=== PATIENT | male | born 1950 | race Caucasian/White ===

== ENCOUNTER 2024-12-15 17:11 | Inpatient (IN) | payer MEDICARE, BC, SELFPAY ==
[2024-12-15] VITALS (10 sets, daily range): BP systolic 178–239; BP diastolic 106–167; PULSE 81–97; RESP 19–30; TEMP 36.3; O2SAT 88–97; BMI 39.6
--- NOTE | 2024-12-15 17:25 | ECG_ITS ---
[employer] Test Date: 2024-12-15 Pat Name: Rupert Poe Department: Room: Gender: Male Skill Training Program Coordinator: : 1950 Requested By: Jerome Allred Order Number: [id number] Reading MD: MCKENZIE REYNOSO Measurements Intervals [place] Rate: 93 P: 29 AR: 242 QRS: 114 QRSD: 158 T: 2 QT: 443 QTc: 552 Interpretive Statements SINUS RHYTHM WITH FIRST DEGREE AV BLOCK WITH OCCASIONAL VENTRICULAR PREMATURE COMPLEXES POSSIBLE LEFT ATRIAL ENLARGEMENT [-0.1mV P-WAVE IN V1/V2] INTRAVENTRICULAR CONDUCTION DELAY [130+ ms QRS DURATION] POSSIBLE RIGHT VENTRICULAR HYPERTROPHY [SOME/ALL OF: PROMINENT R IN V1, LATE TRANSITION, RAD, TRENA, SSS] SEPTAL MYOCARDIAL INFARCTION , OF INDETERMINATE AGE [40+ ms Q WAVE IN V1/V2] INTERPRETATION BASED ON A DEFAULT AGE OF 40 YEARS No previous ECG available for comparison Electronically Signed On 12-17-2024 23:36:59 PLANT MECHANIC by MCKENZIE REYNOSO [id number]
--- NOTE | 2024-12-15 17:42 | XRR_ITS ---
PROCEDURE INFORMATION: Exam: XR Chest Exam date and time: 12/15/2024 5:47 PM Age: 74 years old Clinical indication: Shortness of breath; Additional info: SOB TECHNIQUE: Imaging protocol: Radiologic exam of the chest. Views: 1 view. COMPARISON: No relevant prior studies available. FINDINGS: Lungs: Bibasilar compressive atelectasis. Diffuse reticular opacities likely representing fibrotic change. Pleural spaces: Eqzx-pgxobre-juvt-right layering bilateral pleural effusions. Heart/Mediastinum: Cardiomegaly. Bones/joints: Moderate degenerative change of the thoracic spine, bilateral shoulders. Other findings: Decreased mineralization. XR/XR chest 1V portable [id number] IMPRESSION: 1. Trcm-lqajrbe-ocen-right layering bilateral pleural effusions with associated compressive atelectasis. 2. Query pulmonary fibrotic change.
[2024-12-15 18:01] LABS: Basophils # 0.1 10^3/uL (0.0-0.1); Basophils % 0.6 %; Eosinophils # 0.2 10^3/uL (0.0-0.8); Eosinophils % 1.9 %; Hematocrit 51.4 % (37-53); Lymphocytes # 1.7 10^3/uL (0.8-4.8); Lymphocytes % 21.5 %; Mean Corpuscular HGB Conc 32.1 g/dL (30-55); Mean Corpuscular Hemoglobin 30.2 pg (27-33); Mean Platelet Volume 11.1 fL (7.4-10.4); Monocytes # 0.8 10^3/uL (0.2-0.9); Monocytes % 10.1 %; Neutrophils # 5.08 10^3/uL (1.8-7.7); Neutrophils % 65.8 %; Nucleated Red Blood Cells % 0 %; Platelet Count 162 10^3/cmm (157-399); Red Blood Count 5.47 10^6/uL (3.85-5.65); Red Cell Distribution Width 15.9 % (12.1-15.1); White Blood Count 7.73 10^3/uL (3.29-11.43)
[2024-12-15 18:05] LABS: ABG PCO2 43.1 mmHg (35-45); ABG PH Result 7.35 (7.35-7.45); Arterial Blood Gas Hematocrit 51.2 % (42-52); Base Excess ABG -1.8 mmol/L (-2.0-2.0); Blood Gas Allen Test Pos; Blood Gas Operator Identificat MONRO; Blood Gas Sample Site Radial, left; Blood Gas Sample Type Arterial; Carboxyhemoglobin 0.8 %THgb (0.4-20.1); HCO3 ABG 23.9 mmol/L (22-26); HGB O2 Sat 94.9 % (95-100); Oxygen Device NC; PO2 FiO2 Ratio Arterial Blood 284; Total Hemoglobin 16.7 g/dL (14-18)
[2024-12-15 18:11] LABS: Troponin(5th) Baseline 53 ng/L (0-15)
[2024-12-15 18:26] LABS: Alanine Aminotransferase 19 U/L (0-41); Albumin Level 4.3 g/dL (3.5-5.2); Alkaline Phosphatase 58 U/L (40-130); Blood Urea Nitrogen 20 mg/dL (8-23); Carbon Dioxide 20 mmol/L (22-29); Chloride 104 mmol/L (98-107); Globulin 2.2 g/dL (1.3-4.6); Glucose 115 mg/dL (65-115); NT Pro B Type Natriuretic Pept 7666 pg/mL (0-450); Osmolality Calculated 292 mOsm/kg (285-295); Sodium 139 mmol/L (136-145); Total Bilirubin 0.9 mg/dL (0.15-1.2); Total Protein 6.5 g/dL (6.6-8.7)
[2024-12-15 18:37] LABS: Anion Gap 19.7 (5-19); Aspartate Amino Transferase 27 U/L (0-40); Potassium 4.7 mmol/L (3.5-5.1)
--- NOTE | 2024-12-15 18:51 | ECG_ITS ---
[employer] Test Date: 2024-12-15 Pat Name: Rupert Poe Department: Room: Gender: Male Genetic Physician: : 1950 Requested By: Jerome Allred Order Number: [id number] Reading MD: MCKENZIE REYNOSO Measurements Intervals [place] Rate: 88 P: 140 VA: 152 QRS: 126 QRSD: 151 T: -21 QT: 439 QTc: 534 Interpretive Statements ATRIAL FIBRILLATION RIGHT AXIS DEVIATION [QRS AXIS > 100] RIGHT BUNDLE BRANCH BLOCK [120+ ms QRS DURATION, UPRIGHT V1, 40+ ms S IN I/aVL/V4/V5/V6] MODERATE T-WAVE ABNORMALITY, CONSIDER LATERAL ISCHEMIA [-0.1+ mV T-WAVE IN I/aVL/V5/V6] MODERATE T-WAVE ABNORMALITY, CONSIDER INFERIOR ISCHEMIA [-0.1+ mV T-WAVE IN II/aVF] Compared to ECG 12/15/2024 17:25:29 there is no change Electronically Signed On 12-17-2024 23:50:18 APPLICATIONS SALES CONSULTANT by MCKENZIE REYNOSO [id number] [id number]
[2024-12-15] MEDS: FUROsemide 10 mg/mL SDV 10mL 80 MG IVP (19:09)
[2024-12-15 19:21] LABS: Influenza A NEGATIVE (Negative); Influenza B NEGATIVE (Negative); Respiratory Syncytial Virus Ce NEGATIVE (Negative); SARS-CoV-2 PCR NEGATIVE (Negative)
--- NOTE | 2024-12-15 19:41 | ED_ITS ---
HPI - SOB/Dyspnea 2 General: Chief Complaint: Shortness of Breath/Dyspnea Stated Complaint: sob Time Seen by Provider: 12/15/24 17:29 History of Present Illness: HPI Narrative: This patient is a 74-year-old white male who presents to the emergency department with shortness of breath. Patient states this started 9 days ago. States he has been retaining water. He has developed severe edema of both lower legs to the point where he is leaking. He has not had any chest pain. No fever. Patient states he has no chronic medical problems. He takes no medications. States he has not seen a physician in about 30 years. Associated symptoms: Deny chest pain Related Data Allergies Allergy/AdvReac Type Severity Reaction Status Date / Time No Known Allergies Allergy Verified 12/15/24 17:21 Review of Systems 2 General: Reports: 10 or more systems reviewed and unremarkable except in HPI and below Card: Reports: edema; Denies: chest pain Resp: Reports: dyspnea Physical Exam 2 Const: COMMON NORMALS: no acute distress, patient oriented x3 and no limitations GENERAL APPEARANCE: cooperative and comfortable HENMT: COMMON NORMALS: normocephalic, atraumatic, Normal nasal mucous membranes and turbinates present, moist oral mucous membranes and oropharynx normal HEAD & SCALP: normal to inspection, normocephalic and atraumatic F PEGGY & SINUS: normal facial exam NOSE: Normal nasal mucous membranes and turbinates present Eye: COMMON NORMALS: Equal, round and reactive pupils present, EOMs intact bilaterally and conjunctivae normal GENERAL EYE: appearance normal, both eyes and all related structures CONJUNCTIVA: Yes conjunctivae normal PUPIL: Yes Equal, round and reactive pupils present Neck/C-Spine: COMMON NORMALS: supple and no JVD Chest: COMMONS NORMALS: normal inspection of the chest Resp: COMMON NORMALS: normal respiratory effort AUSCULTATION: crackles and rales Cardio: COMMON NORMALS: no JVD, regular rate, regular rhythm, No gallops present (Cardio), No murmurs present (Cardio) and No rub (Cardio) RATE: r egular rate RHYTHM: regular rhythm GI: COMMON NORMALS: Normal to inspection, nondistended, normoactive bowel sounds present, Soft to palpation and non-tender AUSCULTATION: Yes normoactive bowel sounds PALPATION: Yes Soft to palpation : COMMON NORMALS: Yes no CVA tenderness BLADDER/KIDNEY EXAM: Yes no CVA tenderness Back/Pelvis: COMMON NORMALS: no CVA tenderness and thoracic and lumbar spine normal to inspection Extremity: NARRATIVE EXTREMITY EXAM: 3+ pitting edema bilateral lower extremi ties. Left leg is weeping. Neuro: COMMON NORMALS: patient oriented x3 and CN's II-XII intact bilaterally Psych: COMMON NORMALS: mental status grossly normal, Normal thought process present and cooperative THOUGHT PROCESS: Normal thought process present Skin: COMMON NORMALS: no rashes or lesions noted, turgor normal and no jaundice GENERAL SKIN EXAM: no rashes or lesions noted and turgor normal Course 2 Vital Signs: Vital signs: Vital Signs Temperature 97.3 F L 12/15/24 17:14 Pulse Rate 89 12/15/24 19:18 Respiratory Rate 22 H 12/15/24 19:18 Blood Pressure 239/150 12/15/24 19:18 Pulse Oximetry 96 12/15/24 19:18 Oxygen Delivery Me thod Room Air 12/15/24 19:18 MDM - SOB/Dyspnea Medical Decision Making EKG reveals a right bundle branch block. Chest x-ray reveals cardiomegaly and bilateral pleural effusions. Arterial blood gases on 3 L revealed a pH of 7.35 with pCO2 of 43 and a pO2 of 91. CBC and CMP were normal. BNP was 7666. Baseline troponin 53. COVID, flu and RSV negative. Patient was given 80 mg of Lasix IV. He was also placed on a labetalol drip for his severe hypertension. Blood pressure has been 200s over 120s. Patient does have new onset congestive heart failure. He will need to be admitted. He is also requiring oxygen. I discussed the case with Dr. Warren, hospitalist. Patient will be admitted shortly. He is stable. Lab Data 12/15/24 17:48 12/15/24 17:48 Labs/Radiology: Radiology Impressions Chest X-Ray 12/15/24 17:42 IMPRESSION: 1. Sfls-kwngddc-itfq-right layering bilateral pleural effusions with associated compressive atelectasis. 2. Query pulmonary fibrotic change. Laboratory Results WBC 7.73 10^3/uL (3.29-11.43) 12/15/24 17:48 RBC 5.47 10^6/uL (3.85-5.65) 12/15/24 17:48 Hgb 16.50 g/dL (11.27-16.99) 12/15/24 17:48 Hct 51.4 % (37-53) 12/15/24 17:48 MCV 94.0 fl (82-101) 12/15/24 17:48 MCH 30.2 pg (27-33) 12/15/24 17:48 MCHC 32.1 g/dL (30-55) 12/15/24 17:48 RDW 15.9 % (12.1-15.1) H 12/15/24 17:48 Plt Count 162 10^3/cmm (157-399) 12/15/24 17:48 MPV 11.1 fL (7.4-10.4) H 12/15/24 17:48 Neut % (Auto) 65.8 % 12/15/24 17:48 Lymph % (Auto) 21.5 % 12/15/24 17:48 Mitchell % (Auto) 10.1 % 12/15/24 17:48 Eos % (Auto) 1.9 % 12/15/24 17:48 Baso % (Auto) 0.6 % 12/15/24 17:48 Neut # (Auto) 5.08 10^3/uL (1.8-7.7) 12/15/24 17:48 Lymph # (Auto) 1.7 10^3/uL (0.8-4.8) 12/15/24 17:48 Mitchell # (Auto) 0.8 10^3/uL (0.2-0.9) 12/15/24 17:48 Eos # (Auto) 0.2 10^3/uL (0.0-0.8) 12/15/24 17:48 Baso # (Auto) 0.1 10^3/uL (0.0-0.1) 12/15/24 17:48 Nucleated RBC % (auto) 0 % 12/15/24 17:48 Nucleated RBCs # 0.0 /100WBC 12/15/24 17:48 Specimen Type Arterial 12/15/24 17:52 Sample Site Radial, left 12/15/24 17:52 ABG pH 7.35 (7.35-7.45) 12/15/24 17:52 ABG pCO2 43.1 mmHg (35-45) 12/15/24 17:52 ABG pO2 91.0 mmHg (80.0-100.0) 12/15/24 17:52 ABG PO2/FiO2 Ratio 284 12/15/24 17:52 ABG HCO3 23.9 mmol/L (22-26) 12/15/24 17:52 ABG Base Excess -1.8 mmol/L (-2.0-2.0) 12/15/24 17:52 Paresh Test Pos 12/15/24 17:52 Hematocrit 51.2 % (42-52) 12/15/24 17:52 Hgb O2 Saturation 94.9 % (95-100) L 12/15/24 17:52 Carboxyhemoglobin 0.8 %THgb (0.4-20.1) 12/15/24 17:52 Methemoglobin 0.0 % (0.4-1.5) L 12/15/24 17:52 Total Hemoglobin 16.7 g/dL (14-18) 12/15/24 17:52 O2 Delivery Device Nc 12/15/24 17:52 O2 Liters/Min 3.0 % 12/15/24 17:52 FiO2 32.0 % 12/15/24 17:52 Delivery Sales Worker ID Monro 12/15/24 17:52 Sodium 139 mmol/L (136-145) 12/15/24 17:48 Potassium 4.7 mmol/L (3.5-5.1) 12/15/24 17:48 Chloride 104 mmol/L (98-107) 12/15/24 17:48 Carbon Dioxide 20 mmol/L (22-29) L 12/15/24 17:48 Anion Gap 19.7 (5-19) H 12/15/24 17:48 BUN 20 mg/dL (8-23) 12/15/24 17:48 Creatinine 0.9 mg/dL (0.7-1.2) 12/15/24 17:48 GFR Calculation Not Reportable 12/15/24 17:48 Glucose 115 mg/dL (65-115) 12/15/24 17:48 Calculated Osmolality 292 mOsm/kg (285-295) 12/15/24 17:48 Calcium 9.0 mg/dL (8.5-10.5) 12/15/24 17:48 Total Bilirubin 0.9 mg/dL (0.15-1.2) 12/15/24 17:48 AST 27 U/L (0-40) 12/15/24 17:48 ALT 19 U/L (0-41) 12/15/24 17:48 Alkaline Phosphatase 58 U/L (40-130) 12/15/24 17:48 Troponin T Baseline 53 ng/L (0-15) H 12/15/24 17:48 NT-Pro-B Natriuret Pep 7666 pg/mL (0-450) H 12/15/24 17:48 Total Protein 6.5 g/dL (6.6-8.7) L 12/15/24 17:48 Albumin 4.3 g/dL (3.5-5.2) 12/15/24 17:48 Globulin 2.2 g/dL (1.3-4.6) 12/15/24 17:48 Influenza A (PCR) Negative (Negative) 12/15/24 18:21 Influenza Type B (PCR) Negative (Negative) 12/15/24 18:21 RSV (PCR) Negative (Negative) 12/15/24 18:21 SARS-CoV-2 (PCR) Negative (Negative) 12/15/24 18:21 All radiology interpretation(s) finalized by discharge Discharge Plan Discharge Condition: Stable Print Language: Divehi Coding Level of Care Code ED Territory Representative for Delmy Campbell
--- NOTE | 2024-12-15 19:48 | P.HP_ITS ---
Providers/Chief Complaint 2 Chief Complaint: sob History of Present Illness Rupert Poe is a 74 year old male who has not seen a doctor in a long time presented to the hospital with worsening shortness of orthopnea and PND. Patient is stating that he has been experiencing orthopnea and PND for last few months and it has gotten worse the last few days, he has been noticing significant swelling of his lower extremities, he has not noticed any chest pain fever nausea vomiting diarrhea. He is sleeping upright these days. Patient is endorsing significant shortness of breath on minimal activity such as taking 2-3 steps, going from 1 room to another. He is denying previous history of hypertension or diabetes stroke PA CHF or family history of coronary disease. Patient has not seen a doctor for a long time. In the ER he was diagnosed with new onset CHF, he is hypertensive, he has not received any antihypertensive regimen yet, he has been given Lasix 80 mg, I would hold off on labetalol drip, would like to try hydralazine 10 mg IV push to see the response and then decide if we need the drip Patient is chest pain-free, blood pressure 197/119mmhg Patient is stating that he does snore a lot, stating if he has sleep apnea he is not willing to try CPAP Review of Systems 2 Const: Denies: fever(s) Eyes: Denies: change in vision ENMT: Denies: throat pain Card: Reports: dyspnea on exertion and orthopnea; Denies: chest pain Resp: Reports: dyspnea GI: Denies: abdominal pain Medications/Allergies Allergies Allergy/AdvReac Type Severity Reaction Status Date / Time No Known Allergies Allergy Verified 12/15/24 17:21 Vitals/I&O/Wt Last Vital Signs Temp 97.3 F L 12/15/24 17:14 Pulse 89 12/15/24 19:18 Resp 22 H 12/15/24 19:18 BP 239/150 12/15/24 19:18 Pulse Ox 96 12/15/24 19:18 O2 Del Method Room Air 12/15/24 19:18 Weight last 48 hrs Weight 117.934 kg Physical Exam 2 Narrative: Morbidly obese GCS 15 Hypertension No active chest pain Currently on 2 L nasal cannula saturating well No active chest pain or respiratory distress Ultrasound of heart. Anasarca 3+ edema of legs Left leg purulent cellulitis as well Scratch melissa of left leg noticed Dry skin Distended abdomen Diminished breath sounds at the bases S1, S2 Pleasant and cooperative His neighbor is also in the room, he has a lot is not able to stay Data 12/15/24 17:48 12/15/24 17:48 A&P Assessment and plan (1) Severe hypertension: (2) Congestive heart failure: Qualifiers: Heart failure chronicity: acute Heart failure type: unspecified Q ualified Code(s): I50.9 - Heart failure, unspecified (3) New onset of congestive heart failure: Plan New onset CHF EF is unknown Requested echo I do believe this is related to uncontrolled hypertension and untreated sleep apnea Check hemoglobin A1c, TSH Start diuretics Requested echo Serial troponin and EKG Depending on echo report patient will probably need cardiology consultation if he is reduced for evaluation of new onset CHF Hypertensive urgency Patient is hypertensive has not received any IV pushes in the ER, I will like to try IV pushes before labetalol drip to see the response I will start patient on lisinopril 10 mg twice daily regimen along Lasix, amlodipine and metoprolol Untreated sleep apnea? Overnight pulse ox study Acute hypoxia: Related to CHF Currently on 2 L wean off oxygen to room air Purulent cellulitis left leg Will use topical bacitracin No systemic signs Venous stasis dermatitis as well: Requested D-dimer which came back at 1.[address] chest and venous Doppler Full code Cardiac diet DVT prophylaxis: Heparin PDMP PDMP Reviewed: Not Reviewed Attestations 2 Medical Necessity Statement*: More than 2 midnights anticipated for onset of new onset CHF Diagnoses Severe hypertension I10 Congestive heart failure I50.9 Heart failure chronicity: acute Heart failure type: unspecified New onset of congestive heart failure I50.9
[2024-12-15 19:53] LABS: Troponin 5 2HR 57.13 ng/L (0-15); Troponin 5 2HR Delta 4.13 ABS# (0-10)
[2024-12-15 20:12] LABS: Chol HDL Ratio 3.55 mg/dL (1.0-5.00); Cholesterol 156 mg/dL (0-200); HDL Cholesterol 44 mg/dL (60-100); LDL Cholesterol Calculated 90 mg/dL (50-129); LDL HDL Ratio 2.05 RATIO (0.00-3.22); Triglycerides 108 mg/dL (0-150)
[2024-12-15 20:23] LABS: D Dimer 1.51 ug/mLFEU (0-0.59); Estmated Average Glucose 120; Hemoglobin A1C 5.8 % (4.0-6.0)
[2024-12-15] MEDS: hyDRALAzine 20 mg/mL INJ 1 mL 10 MG IVP (20:37)
--- NOTE | 2024-12-15 21:06 | PC.NURSE ---
PT WAS TAKEN FOR IMAGING AND WAS UNABLE TO LAY FLAT. RADIOLOGY WAS UNABLE TO OBTAIN IMAGING.
[2024-12-15 21:29] LABS: Thyroid Stimulating Hormone 2.25 uIU/mL (0.27-4.20)
[2024-12-15] MEDS: enoxaparin 40 mg/0.4 mL Syringe SUBCUT (22:31)
[2024-12-15] MEDS: amlodipine 10 mg Tablet PO (22:31)
[2024-12-15] MEDS: lisinopril 10 mg Tablet PO (22:31)
--- NOTE | 2024-12-15 22:48 | PC.NURSE ---
Patient received from ED via stretcher. Patient able to ambulate to bed using personal cane. Patient tolerated well. Instructed patient on potential fluid restrictions and use of lasix for swelling. Patient denies pain or needs. Will continue to monitor.
--- NOTE | 2024-12-15 23:43 | ECG_ITS ---
[employer] Test Date: 2024-12-15 Pat Name: Rupert Poe Department: Room: 111 Gender: Male Hearing Consultant: : 1950 Requested By: Jerome Allred Order Number: [id number] Zeynep MD: MCKENZIE REYNOSO Measurements Intervals [place] Rate: 79 P: 9 IA: 210 QRS: 119 QRSD: 150 T: -21 QT: 446 QTc: 512 Interpretive Statements SINUS RHYTHM WITH FIRST DEGREE AV BLOCK RIGHT AXIS DEVIATION [QRS AXIS > 100] RIGHT BUNDLE BRANCH BLOCK [120+ ms QRS DURATION, UPRIGHT V1, 40+ ms S IN I/aVL/V4/V5/V6] MODERATE T-WAVE ABNORMALITY, CONSIDER LATERAL ISCHEMIA [-0.1+ mV T-WAVE IN I/aVL/V5/V6] MODERATE T-WAVE ABNORMALITY, CONSIDER INFERIOR ISCHEMIA [-0.1+ mV T-WAVE IN II/aVF] Compared to ECG 12/15/2024 18:51:44 First degree AV block now present Electronically Signed On 12-17-2024 23:48:41 SWEDGER by MCKENZIE REYNOSO [email or web address] [id number]
[2024-12-16] VITALS (14 sets, daily range): BP systolic 120–169; BP diastolic 66–101; PULSE 62–89; RESP 15–24; TEMP 36.5–36.9; O2SAT 91–100
[2024-12-16 00:24] LABS: Troponin 5 6HR 57.95 ng/L (0-15); Troponin 5 6HR Delta 4.95 ng/L (0-12)
[2024-12-16] MEDS: FUROsemide 10 mg/mL SDV 10mL 40 MG IVP ×2 (05:56→18:03)
[2024-12-16 06:06] LABS: Basophils # 0.1 10^3/uL (0.0-0.1); Basophils % 0.7 %; Eosinophils # 0.2 10^3/uL (0.0-0.8); Eosinophils % 2.1 %; Hematocrit 51.5 % (37-53); Lymphocytes # 1.4 10^3/uL (0.8-4.8); Lymphocytes % 18.4 %; Mean Corpuscular HGB Conc 32.2 g/dL (30-55); Mean Corpuscular Hemoglobin 30.1 pg (27-33); Mean Corpuscular Volume 93.5 fl (82-101); Mean Platelet Volume 11.4 fL (7.4-10.4); Monocytes # 0.9 10^3/uL (0.2-0.9); Monocytes % 12.1 %; Neutrophils # 5.07 10^3/uL (1.8-7.7); Neutrophils % 66.6 %; Nucleated Red Blood Cells % 0 %; Platelet Count 160 10^3/cmm (157-399); Red Blood Count 5.51 10^6/uL (3.85-5.65); Red Cell Distribution Width 15.9 % (12.1-15.1); White Blood Count 7.61 10^3/uL (3.29-11.43)
[2024-12-16 06:18] LABS: Blood Urea Nitrogen 18 mg/dL (8-23); Calcium 9.5 mg/dL (8.5-10.5); Carbon Dioxide 28 mmol/L (22-29); Chloride 99 mmol/L (98-107); Creatinine Clr Calc Pharmacy 76.2834; Glucose 85 mg/dL (65-115); Osmolality Calculated 293 mOsm/kg (285-295); Phosphorus 4.2 mg/dL (2.5-4.5); Sodium 141 mmol/L (136-145)
[2024-12-16 06:35] LABS: Anion Gap 18.2 (5-19); Potassium 4.2 mmol/L (3.5-5.1)
[2024-12-16] MEDS: aspirin 81 mg EC Tablet PO (08:10)
[2024-12-16] MEDS: lisinopril 10 mg Tablet PO ×2 (08:11→18:04)
[2024-12-16] MEDS: metoprolol tartrate 25 mg Tablet PO ×2 (08:11→20:47)
--- NOTE | 2024-12-16 09:35 | PC.CHAP ---
Pastoral Care Encounter/Spiritual Assessment Type of Contact [] Declined addiction medicine physician visit [] Patient/Family/Request visit [] Outpatient visit [] Follow-up visit [] Physician referral [] Code/Alert [x] Routine visit [] Staff referral [] Actively dying [] Patient sleeping [] Family support [] [] Out of room [] Palliative care [] [] Receiving care in room [] Pre-surgical visit [] Trauma [] Long length of stay [] ICU visit [] Other: Relational/Emotional Strength [] Patient feels connected with others/family/visitors/staff [] Distress [] Loneliness/isolation [] Abandonment Spirituality of Patient [x] Person of Linda [] Attends Jewish of their Linda [x] Believes in Prayer [] Reads Bible or Restorationist materials [] There are Spiritual issues to be addressed Oleo Hasher And Renderer Interventions [x Prayer [x] Active listening [] Non-anxious presence [] Spiritual/emotional support [] Crisis/trauma care [] Spiritual counseling [] Bereavement support [] Provided bereavement packet [] Provided Bible/devotional materials [] Provided toy/stuffed animal, coloring book to patient or family member [] Provided Communion [] Anointing/[place] [] Salvation [x] Completed spiritual assessment [] Other: Impact on Illness or Injury [] Angry [] Fearful [] Anxious [] Often cries [] Exhaustion [] Unable to work [] Unable to attend restoration [] Unable to walk/stand [] Unable to read [] Unable to drive [] Unable to eat/drink [] Unable to sleep [] Unable to be with family [] Patient intubated [] Other: Summary Time spent with patient 5 min
--- NOTE | 2024-12-16 11:26 | P.CONIM_ITS ---
<Statement entered by Quang Montgomery M.D - 12/17/24 21:20> Patient was evaluated and cared for in conjunction with an advanced practice practitioner. I personally examined the patient and reviewed the chart and all pertinent data including imaging, telemetry, and laboratory results. I discussed the patient in detail with the advanced practice practitioner. Please see their note for complete consult note, results and agreed upon plan of care for the patient. GENERAL: Patient is alert and oriented HEART: Regular S1 and S2 LUNGS: Bilateral crackles EXTREMITIES: Lower extremities with 1-2 edema Providers/Reason For Consult 2 Consulting Physician/Specialty*: Dr. Montgomery Reason for Consult*: New onset CHF Requesting Physician: Dr. Harrell Attending Physician: Ankita Harrell MD History of Present Illness History of Present Illness Rupert Poe is a 74 year old male who came into the emergency room yesterday complaining of worsening shortness of breath and orthopnea. He states for couple months he has been having shortness of breath on exertion but is gotten progressively worse to the point where it was severe. He states he does not see a doctor very often. Denies any current cardiac history. Denies any recent chest pain. He came in with high blood pressure as well. Currently is is well controlled at 120/66. She states he was not able to go for a CT yesterday do to shortness of breath, but is much better today. Chest x--ray showed left greater than right bilateral pleural effusions with copmressive atelectasis. EKG showed sinus rhythm with T wave inversions in inferior and lateral leads. He is currently getting Lasix 40 q 12, lisinopril 10 BID, and metoprolol 25 BID. Pro BNP was 7666. Troponin elevated at 53-57.13-57.95. Review of Systems 2 Narrative: Consitutional: denies fever, chills, body aches, or changes in appetite, denies abnormal weight loss Eyes: Denies changes in vision Card: Denies chest pain, palpitations, irregular heart rhythm, edema, syncope, shortness of breath, orthopnea, leg pain with exertion Resp: reports shortness of breath on exertion, reports improving orthopnea, denies hemoptysis, denies cough GI: denies abdominal pain, denies nausea or voimting, denies blood in stool : denies blood in urine, denies dysuria Musc: Denies extremity pain, denies limited range of motion or recent injury Skin: Denies rash, lesions, or wounds, denies changes to skin color Neuro: Denies nubmness in extremities, h/a, s/s of stroke Medications/Allergies Home Medications ?Medication ?Instructions ?Recorded ?Confirmed ?Last Taken ?Type aspirin 81 mg tablet,delayed 81 mg PO DAILY 12/15/24 0 12/15/24 12/15/24 08:00 History release docusate sodium 100 mg capsule 100 mg PO DAILY 5 12/15/24 12/15/24 08:00 History (Colace) garlic 100 mg tablet 100 mg PO DAILY 12/15/2412/15/24 08:00 History mecobalamin (vitamin B12) 1,000 1,000 mcg PO DAILY 12/15/24 12/15/24 08:00 History mcg chewable tablet (B12 Active) multivitamin 1 tab PO DAILY 12/15/2411/2412/15/24 08:00 History polyethylene glycol 3350 17 4 g PO DAILY 12/15/2411/2412/14/24 21:00 History gram/dose oral powder (Miralax) Allergies Allergy/AdvReac Type Severity Reaction Status Date / Time No Known Allergies Allergy Verified 12/15/24 17:21 Current Medications Generic Name Dose Route Start Last Admin Trade Name Freq PRN Reason Stop Dose Admin Aspirin 81 mg 12/16/24 09:00 12/16/24 08:10 Aspirin 81 Mg Ec Tablet PO 81 mg DAILY KRISTA Administration Enoxaparin Sodium 40 mg 12/15/24 21:00 12/15/24 22:31 Enoxaparin 40 Mg/0.4 Ml Syringe SUBCUT 40 mg Q24H KRISTA Administration Furosemide 40 mg 12/16/24 07:00 12/16/24 05:56 Furosemide 10 Mg/Ml Sdv 10ml IVP 40 mg Q12H KRISTA Administration Lisinopril 10 mg 12/15/24 21:55 12/16/24 08:11 Lisinopril 10 Mg Tablet PO 10 mg BID KRISTA Administration Metoprolol Tartrate 25 mg 12/16/24 09:00 12/16/24 08:11 Metoprolol Tartrate 25 Mg Tablet PO 25 mg BID@0900,2100 KRISTA Administration Vitals/I&O/Wt Last Vital Signs Temp 97.8 F 12/16/24 08:00 Pulse 62 12/16/24 08:00 Resp 20 H 12/16/24 08:00 BP 120/66 12/16/24 08:00 Pulse Ox 94 12/16/24 08:00 O2 Del Method Nasal Cannula 12/16/24 08:00 O2 Flow Rate 2 12/16/24 08:00 12/15/24 12/16/24 12/16/24 22:59 06:59 14:59 Intake Total 120 / 120 Output Total 2675 / 2675 Balance -2675 / -2675 120 / 120 Weight last 48 hrs Weight 246 lb 12.8 oz Weight 261 lb Weight 260 lb Physical Exam 2 Narrative: General: No apparent distress, healthy appearing, well nourished HENMT: normoceophalic Muskuloskeletal: Full ROM Respiratory: Normal respiratory effort, left lower lobe posteriorly slightly diminished and right posterior lower lobe fine crackles present, no use of accessory muscles Cardio: No JVD, regular rate, regular rhythm, S1 S2 normal, no murmurs, peripheral pulses 2+ radial palpated bilaterally GI: Normal to inspection, nondistended Extremities: Full ROM, normal, normal capillary refill, no cyanosis or edema Neuro: Alert and oriented x4, no focal motor deficits Psych: Affect normal, denies suicidal ideation, mental status grossly normal Skin: No rashes or lesions noted, no wounds Data 12/16/24 05:08 12/16/24 05:08 A&P Assessment and plan (1) Severe hypertension: (2) New onset of congestive heart failure: (3) Shortness of breath: (4) Elevated troponin: Plan Patient has s/s of congestive heart failure. Recommend obtaining echo cardiogram. Agree with lasix IV 40 Q 12. He has been -2675 over 24 hours. Close I&O monitoring with close watch at kidney function. Further recommendations to be made after echocardiogram is done. If ejection fraction is low, may need angiogram in the future. Thank you, Dr. Harrell, for allowing us to care for this very pleasant 74 year old gentleman. PDMP PDMP Reviewed: Not Reviewed Consult Attestations 2 Medical Necessity Statement: Deferred to primary. Coding Level of Care Code Acute Code for Chg Fwd Diagnoses Severe hypertension I10 New onset of congestive heart failure I50.9 Shortness of breath R06.02 Elevated troponin R79.89
--- NOTE | 2024-12-16 12:29 | P.PN_ITS ---
Subjective 2 Subjective: Seen this morning. Urine output 2675 cc overnight. D-dimer 1.51. Creatinine 1.0. Venous Dopplers negative for DVT. BNP 7600 on admission. Patient is on furosemide 40 every 12 hours. Labetalol has been discontinued. He states he is starting to feel better. Still requiring 2 L nasal cannula. He is not on any oxygen at home. Cardiology evaluated the patient this morning as well. Awaiting echocardiogram at this time. Vitals/I&O/Wt Last Vital Signs Temp 97.8 F 12/16/24 08:00 Pulse 62 12/16/24 08:00 Resp 20 H 12/16/24 08:00 BP 120/66 12/16/24 08:00 Pulse Ox 94 12/16/24 08:00 O2 Del Method Nasal Cannula 12/16/24 08:00 O2 Flow Rate 2 12/16/24 08:00 12/15/24 12/16/24 12/16/24 22:59 06:59 14:59 Intake Total 120 / 120 Output Total 2675 / 2675 Balance -2675 / -2675 120 / 120 Weight last 48 hrs Weight 111.947 kg Weight 118.388 kg Weight 117.934 kg Physical Exam 2 Narrative: General: Alert oriented x3, patient seen sitting up in bed on 2 L nasal cannula talking and laughing. No acute respiratory distress. No conversational dyspnea. States he starting to feel better. HEENT: Normocephalic, atraumatic, EOMI, breathing 2 L NC. Cardio: Regular rate rhythm, normal S1-S2, no gross murmurs. Respiratory: Crackles bilaterally at bases up to one third lung dao. GI: Abdomen soft, nontender, nondistended, bowel sounds + Behavior: Appropriate and cooperative Extremities: 2-3+ edema bilaterally up to thighs. Generalized anasarca. Data 12/16/24 05:08 12/16/24 05:08 A&P Assessment and plan (1) Severe hypertension: (2) Congestive heart failure: Qualifiers: Heart failure chronicity: acute Heart failure type: unspecified Q ualified Code(s): I50.9 - Heart failure, unspecified (3) New onset of congestive heart failure: Plan New onset CHF EF is unknown Requested echo I do believe this is related to uncontrolled hypertension and untreated sleep apnea Check hemoglobin A1c, TSH Start diuretics Requested echo Serial troponin and EKG Depending on echo report patient will probably need cardiology consultation if he is reduced for evaluation of new onset CHF Hypertensive urgency Patient is hypertensive has not received any IV pushes in the ER, I will like to try IV pushes before labetalol drip to see the response I will start patient on lisinopril 10 mg twice daily regimen along Lasix, amlodipine and metoprolol Untreated sleep apnea? Overnight pulse ox study Acute hypoxia: Related to CHF Currently on 2 L wean off oxygen to room air Purulent cellulitis left leg Will use topical bacitracin No systemic signs Venous stasis dermatitis as well: Requested D-dimer which came back at 1.[address] chest and venous Doppler Full code Cardiac diet DVT prophylaxis: Heparin 12/16/2024 #New onset congestive heart failure #Hypertensive urgency requiring labetalol drip on admission #Possible undiagnosed obstructive sleep apnea #Purulent cellulitis left leg #Elevated troponin #Elevated D-dimer -Continue IV diuresis with Lasix 40 IV twice daily. Continue to monitor urine output. Patient still has significant crackles bilaterally at one third of his lungs. Secondary to IV Lasix patient is at risk for electrolyte imbalance. Check BMP daily and replete potassium and magnesium as needed. ? Venous Dopplers are ruled out DVT. I will go ahead and order CTA chest to rule out PE. Patient does have hypoxia requiring 2 L nasal cannula [id number] at this time. Not on any oxygen at home. Hypoxia most likely secondary to fluid overload however PE cannot be ruled out at this time. ? Patient will need sleep study as an outpatient after discharge. ? Labetalol drip was stopped overnight. Placed on lisinopril 10 mg twice daily, amlodipine, metoprolol. We will continue at this time. ? Continue Lovenox 40 daily for DVT prophylaxis. ? Does have cellulitis on left leg. Bacitracin topical twice daily ordered. Order IV ceftriaxone 1 g daily and switch to oral Augmentin at discharge to treat for total 10 days. ? Cardiology consulted. Appreciate recommendations. ? Echo pending at this time. Full code PDMP PDMP Reviewed: Not Reviewed Attestations 2 Medical Necessity Statement*: More than 2 midnights anticipated for onset of new onset CHF Diagnoses Severe hypertension I10 Congestive heart failure I50.9 Heart failure chronicity: acute Heart failure type: unspecified New onset of congestive heart failure I50.9
[2024-12-16] MEDS: enoxaparin 120 mg/0.8 mL Syringe 110 MG SUBCUT (14:56)
[2024-12-16] MEDS: bacitracin ointment 28 gm 1 APPLIC TOPICAL ×2 (14:56→17:47)
--- NOTE | 2024-12-16 20:45 | USCV_ITS ---
Rupert Poe Age: 74 Gender: M : 1950 Exam Date: 12/16/2024 09:29 Ordering Phys: Sami Garcia MD Technologist: [place] [facility] [place]: chf BP: 142 / 90 HR: 59 Rhythm: Sinus Technical Quality: Adequate MEASUREMENTS (Male / Female) Normal Values 2D ECHO LV Diastolic Diameter PLAX 4.3 cm 4.2 - 5.9 / 3.9 - 5.3 cm IVS Diastolic Thickness 1.7 cm 0.6 - 1.0 / 0.6 - 0.9 cm IVS Systolic Thickness 2.1 cm LVPW Diastolic Thickness 1.8 cm 0.6 - 1.0 / 0.6 - 0.9 cm LVPW Systolic Thickness 2.2 cm LVOT Diameter 2.0 cm LV Ejection Fraction 2D Teich 64.3 % LV Ejection Fraction MOD 4C 53.8 % LV Ejection Fraction MOD 2C 36.5 % LV Ejection Fraction 2C AL 38.8 % LA Diameter 4.4 cm RA Systolic Volume 4C AL 39.8 ml RA Systolic Volume 4C MOD 38.8 ml Aorta at Sinotubular Diameter 3.2 cm IVC Diameter 2.3 cm M-MODE LA Ao Ratio MM 1.2 AV Cusp Separation MM 1.8 cm DOPPLER AV Peak Velocity 208.0 cm/s MV Area PHT 2.6 cm squared Mitral E to A Ratio 1.0 TV Peak Velocity 103.5 cm/s TR Peak Velocity 124.0 cm/s TR Peak Gradient 6.2 mmHg TV Peak E Velocity 189.0 cm/s PV Peak Velocity 72.0 cm/s FINDINGS Left Ventricle Left ventricle is normal size. LV systolic function is mildly reduced with EF of 40-45%. Mild global hypokinesis. Right Ventricle Normal in size and function Right Atrium Normal in size Left Atrium Normal in size Mitral Valve Structurally normal mitral valve. Trace mitral regurgitation. Aortic Valve Aortic valve is thickened and calcified. Mild aortic stenosis with mean gradient across aortic valve of 9 mmHg. Tricuspid Valve Insufficient TR jet to calculate RVSP Pulmonic Valve Not well visualized Pericardium Small sized pericardial effusion Aorta Normal in size IVC Appears dilated CONCLUSIONS LV systolic function is mildly reduced with EF of 40-45%. Trace mitral regurgitation. Mild aortic stenosis. Small sized pericardial effusion. IVC appears dilated No comparison studies are available. Quang Montgomery MD (Electronically Signed) Final Date: 16 December 2024 12:39 S
--- NOTE | 2024-12-16 20:50 | USCV_ITS ---
Rupert Poe Age: 74 Gender: M : 1950 Exam Date: 12/16/2024 09:54 Ordering Phys: Sami Garcia MD Technologist: Exam Location: [facility] – [place] Indication: bilat edema ? pe PROCEDURES: The venous duplex Doppler examination of both lower extremities was performed in the standard fashion. The following venous structures were evaluated: common femoral vein, profunda vein, proximal portion of the greater saphenous vein, superficial femoral vein, and the popliteal vein. FINDINGS: Normal 2-D Doppler and augmentation and compressibility throughout the lower extremity venous structures. Additional imaging through the proximal calf veins also reveals no thrombus. Limited evaluation of the greater saphenous vein is patent with no thrombus. CONCLUSIONS No evidence of right lower extremity DVT. No evidence of left lower extremity DVT. Denis Ackerman MD (Electronically Signed) Final Date: 16 December 2024 11:29 S
[2024-12-17] VITALS (9 sets, daily range): BP systolic 128–154; BP diastolic 58–86; PULSE 60–73; RESP 12–22; TEMP 36.6–36.9; O2SAT 77–97
[2024-12-17] MEDS: enoxaparin 120 mg/0.8 mL Syringe 110 MG SUBCUT (00:15)
[2024-12-17 03:38] LABS: Basophils # 0.1 10^3/uL (0.0-0.1); Basophils % 0.6 %; Eosinophils # 0.4 10^3/uL (0.0-0.8); Eosinophils % 4.3 %; Hematocrit 50.3 % (37-53); Lymphocytes % 24.3 %; Mean Corpuscular Hemoglobin 30.6 pg (27-33); Mean Corpuscular Volume 95.6 fl (82-101); Mean Platelet Volume 10.9 fL (7.4-10.4); Monocytes # 1.2 10^3/uL (0.2-0.9); Monocytes % 15.3 %; Neutrophils # 4.45 10^3/uL (1.8-7.7); Neutrophils % 55.4 %; Nucleated Red Blood Cells % 0 %; Platelet Count 156 10^3/cmm (157-399); Red Blood Count 5.26 10^6/uL (3.85-5.65); Red Cell Distribution Width 15.9 % (12.1-15.1); White Blood Count 8.05 10^3/uL (3.29-11.43)
[2024-12-17 03:58] LABS: Anion Gap 13.7 (5-19); Blood Urea Nitrogen 27 mg/dL (8-23); Calcium 9.2 mg/dL (8.5-10.5); Carbon Dioxide 34 mmol/L (22-29); Chloride 97 mmol/L (98-107); Creatinine Clr Calc Pharmacy 54.4881; Glucose 82 mg/dL (65-115); Osmolality Calculated 294 mOsm/kg (285-295); Potassium 4.7 mmol/L (3.5-5.1); Sodium 140 mmol/L (136-145)
[2024-12-17] MEDS: diphenhydrAMINE 50 mg Capsule PO (05:48)
[2024-12-17] MEDS: sodium chloride 0.9% 1,000 ML 50 ML IV (05:49)
[2024-12-17] MEDS: aspirin 81 mg EC Tablet PO (08:54)
[2024-12-17] MEDS: bacitracin ointment 28 gm 1 APPLIC TOPICAL ×2 (08:54→17:28)
[2024-12-17] MEDS: lisinopril 10 mg Tablet PO ×2 (08:54→17:13)
[2024-12-17] MEDS: metoprolol tartrate 25 mg Tablet PO ×2 (08:54→20:26)
--- NOTE | 2024-12-17 10:08 | PC.CHAP ---
Pastoral Care Encounter/Spiritual Assessment Type of Contact [] Declined brazing furnace feeder visit [] Patient/Family/Request visit [] Outpatient visit [] Follow-up visit [] Physician referral [] Code/Alert [x] Routine visit [] Staff referral [] Actively dying [] Patient sleeping [] Family support [] [] Out of room [] Palliative care [] [] Receiving care in room [] Pre-surgical visit [] Trauma [] Long length of stay [] ICU visit [] Other: Relational/Emotional Strength [x] Patient feels connected with others/family/visitors/staff [] Distress [] Loneliness/isolation [] Abandonment Spirituality of Patient [x] Person of Linda [] Attends Oriental Orthodox of their Linda [] Believes in Prayer [] Reads Bible or Protestant materials [] There are Spiritual issues to be addressed Police Sergeant Interventions [x] Prayer [x] Active listening [] Non-anxious presence [x] Spiritual/emotional support [] Crisis/trauma care [] Spiritual counseling [] Bereavement support [] Provided bereavement packet [] Provided Bible/devotional materials [] Provided toy/stuffed animal, coloring book to patient or family member [] Provided Communion [] Anointing/[place] [] Salvation [x] Completed spiritual assessment [] Other: Impact on Illness or Injury [] Angry [] Fearful [] Anxious [] Often cries [] Exhaustion [] Unable to work [] Unable to attend moravian [] Unable to walk/stand [] Unable to read [] Unable to drive [] Unable to eat/drink [] Unable to sleep [] Unable to be with family [] Patient intubated [] Other: Summary Time spent with patient 5 min Pastoral Care Encounter/Spiritual Assessment Type of Contact [] Declined brazing furnace feeder visit [] Patient/Family/Request visit [] Outpatient visit [] Follow-up visit [] Physician referral [] Code/Alert [] Routine visit [] Staff referral [] Actively dying [] Patient sleeping [] Family support [] [] Out of room [] Palliative care [] [] Receiving care in room [] Pre-surgical visit [] Trauma [] Long length of stay [] ICU visit [] Other: Relational/Emotional Strength [] Patient feels connected with others/family/visitors/staff [] Distress [] Loneliness/isolation [] Abandonment Spirituality of Patient [] Person of Linda [] Attends Oriental Orthodox of their Linda [] Believes in Prayer [] Reads Bible or Protestant materials [] There are Spiritual issues to be addressed Police Sergeant Interventions [] Prayer [] Active listening [] Non-anxious presence [] Spiritual/emotional support [] Crisis/trauma care [] Spiritual counseling [] Bereavement support [] Provided bereavement packet [] Provided Bible/devotional materials [] Provided toy/stuffed animal, coloring book to patient or family member [] Provided Communion [] Anointing/[place] [] Salvation [] Completed spiritual assessment [] Other: Impact on Illness or Injury [] Angry [] Fearful [] Anxious [] Often cries [] Exhaustion [] Unable to work [] Unable to attend moravian [] Unable to walk/stand [] Unable to read [] Unable to drive [] Unable to eat/drink [] Unable to sleep [] Unable to be with family [] Patient intubated [] Other: Summary Time spent with patient
--- NOTE | 2024-12-17 12:35 | P.PN_ITS ---
Subjective 2 Subjective: Seen this morning. Creatinine 1.[address] unable to be completed secondary to patient unable to lay flat and KELLY. He is still on 3 L nasal cannula. Vitals/I&O/Wt Last Vital Signs Temp 98.5 F 12/17/24 12:00 Pulse 65 12/17/24 12:00 Resp 22 H 12/17/24 12:00 BP 131/81 12/17/24 12:00 Pulse Ox 95 12/17/24 12:00 O2 Del Method Nasal Cannula 12/17/24 12:00 O2 Flow Rate 2.5 12/17/24 09:15 12/16/24 12/17/24 12/17/24 22:59 06:59 14:59 Intake Total 480 / 960 Output Total 1050 / 1050 550 / 1600 Balance -570 / -90 -550 / -640 Weight last 48 hrs Weight 111.674 kg Weight 111.947 kg Weight 118.388 kg Weight 117.934 kg Physical Exam 2 Narrative: General: Alert oriented x3, patient seen sitting up in bed on 2-3 L nasal cannula. No acute respiratory distress. No conversational dyspnea. States he starting to feel better. HEENT: Normocephalic, atraumatic, EOMI, breathing 2 L NC. Cardio: Regular rate rhythm, normal S1-S2, no gross murmurs. Respiratory: No crackles appreciated today, lungs sound better compared to yesterday. GI: Abdomen soft, nontender, nondistended, bowel sounds + Behavior: Appropriate and cooperative Extremities: 2+ edema bilaterally up to thighs. Generalized anasarca. Data 12/17/24 03:17 12/17/24 03:17 A&P Assessment and plan (1) Severe hypertension: (2) Congestive heart failure: Qualifiers: Heart failure chronicity: acute Heart failure type: unspecified Q ualified Code(s): I50.9 - Heart failure, unspecified (3) New onset of congestive heart failure: Plan New onset CHF EF is unknown Requested echo I do believe this is related to uncontrolled hypertension and untreated sleep apnea Check hemoglobin A1c, TSH Start diuretics Requested echo Serial troponin and EKG Depending on echo report patient will probably need cardiology consultation if he is reduced for evaluation of new onset CHF Hypertensive urgency Patient is hypertensive has not received any IV pushes in the ER, I will like to try IV pushes before labetalol drip to see the response I will start patient on lisinopril 10 mg twice daily regimen along Lasix, amlodipine and metoprolol Untreated sleep apnea? Overnight pulse ox study Acute hypoxia: Related to CHF Currently on 2 L wean off oxygen to room air Purulent cellulitis left leg Will use topical bacitracin No systemic signs Venous stasis dermatitis as well: Requested D-dimer which came back at 1.[address] chest and venous Doppler Full code Cardiac diet DVT prophylaxis: Heparin 12/16/2024 #New onset congestive heart failure #Hypertensive urgency requiring labetalol drip on admission #Possible undiagnosed obstructive sleep apnea #Purulent cellulitis left leg #Elevated troponin #Elevated D-dimer -Continue IV diuresis with Lasix 40 IV twice daily. Continue to monitor urine output. Patient still has significant crackles bilaterally at one third of his lungs. Secondary to IV Lasix patient is at risk for electrolyte imbalance. Check BMP daily and replete potassium and magnesium as needed. ? Venous Dopplers are ruled out DVT. I will go ahead and order CTA chest to rule out PE. Patient does have hypoxia requiring 2 L nasal cannula [id number] at this time. Not on any oxygen at home. Hypoxia most likely secondary to fluid overload however PE cannot be ruled out at this time. ? Patient will need sleep study as an outpatient after discharge. ? Labetalol drip was stopped overnight. Placed on lisinopril 10 mg twice daily, amlodipine, metoprolol. We will continue at this time. ? Continue Lovenox 40 daily for DVT prophylaxis. ? Does have cellulitis on left leg. Bacitracin topical twice daily ordered. Order IV ceftriaxone 1 g daily and switch to oral Augmentin at discharge to treat for total 10 days. ? Cardiology consulted. Appreciate recommendations. ? Echo pending at this time. Full code 12/17/2024 Hold Lasix 40 IV twice daily at this time. Hold IV fluids. Continue metoprolol to tartrate I will stop therapeutic Lovenox at this time for coverage for PE and switch to heparin drip secondary to KELLY. Recheck BMP in the afternoon around 4 PM. Continue patient's diet today. Will plan for coronary angiogram once creatinine is better. Discussed with cardiology. PDMP PDMP Reviewed: Not Reviewed Attestations 2 Medical Necessity Statement*: KELLY, New onset HF Needs cath eventually. Coding Level of Care Code Acute Code for Chg Fwd Diagnoses Severe hypertension I10 Congestive heart failure I50.9 Heart failure chronicity: acute Heart failure type: unspecified New onset of congestive heart failure I50.9
--- NOTE | 2024-12-17 12:51 | P.PN_ITS ---
<Statement entered by Quang Montgomery M.D - 12/17/24 23:19> Patient was evaluated and cared for in conjunction with an advanced practice practitioner. I personally examined the patient and reviewed the chart and all pertinent data including imaging, telemetry, and laboratory results. I discussed the patient in detail with the advanced practice practitioner. Please see their note for complete progress note, results and agreed upon plan of care for the patient. GENERAL: Patient is alert and oriented HEART: Regular S1 and S2 LUNGS: Bilateral crakcles EXTREMITIES: Lower extremities with 1+ edema Subjective 2 Subjective: Patient was going to go for left heart cath this AM, but creatinine was elevated at 1.4. He denies any shortness of breath or chest pain at this time. Vitals/I&O/Wt Last Vital Signs Temp 98.5 F 12/17/24 12:00 Pulse 65 12/17/24 12:00 Resp 22 H 12/17/24 12:00 BP 131/81 12/17/24 12:00 Pulse Ox 95 12/17/24 12:00 O2 Del Method Nasal Cannula 12/17/24 12:00 O2 Flow Rate 2.5 12/17/24 09:15 12/16/24 12/17/24 12/17/24 22:59 06:59 14:59 Intake Total 480 / 960 Output Total 1050 / 1050 550 / 1600 Balance -570 / -90 -550 / -640 Weight last 48 hrs Weight 246 lb 3.2 oz Weight 246 lb 12.8 oz Weight 261 lb Weight 260 lb Physical Exam 2 Narrative: General: No apparent distress, healthy appearing, well nourished HENMT: normoceophalic Muskuloskeletal: Full ROM Respiratory: Normal respiratory effort, fine crackles bilateral lower lobes, no use of accessory muscles Cardio: No JVD, regular rate, regular rhythm, S1 S2 normal, no murmurs, peripheral pulses 2+ radial palpated bilaterally GI: Normal to inspection, nondistended Extremities: Full ROM, normal, normal capillary refill, no cyanosis or edema Neuro: Alert and oriented x4, no focal motor deficits Psych: Affect normal, denies suicidal ideation, mental status grossly normal Skin: No rashes or lesions noted, no wounds Data 12/17/24 03:17 12/17/24 03:17 A&P Assessment and plan (1) Severe hypertension: (2) New onset of congestive heart failure: (3) Shortness of breath: (4) Elevated troponin: Plan Echo showed EF to be 40-45%. We will stop pre cath fluids. Patient has crackles. Will give one dose of IV lasix. Will repeat BMP this afternoon. Will take patient for heart cath once euvolemic and creatinine has stablilized. L PDMP PDMP Reviewed: Not Reviewed Attestations 2 Medical Necessity Statement*: Deferred to primary Coding Level of Care Code Acute Code for g Fwd Diagnoses Severe hypertension I10 New onset of congestive heart failure I50.9 Shortness of breath R06.02 Elevated troponin R79.89
[2024-12-17] MEDS: FUROsemide 10 mg/mL SDV 4mL 40 MG IVP (13:24)
[2024-12-17] MEDS: heparin 5,000 unit/mL INJ 1 mL IVP (17:10)
[2024-12-17] MEDS: heparin drip 25,000 UNIT/500 ML PREMIX 32 UNIT IV (17:12)
[2024-12-17 18:21] LABS: Blood Urea Nitrogen 28 mg/dL (8-23); Calcium 8.9 mg/dL (8.5-10.5); Carbon Dioxide 32 mmol/L (22-29); Chloride 97 mmol/L (98-107); Creatinine Clr Calc Pharmacy 76.1863; Glucose 74 mg/dL (65-115); Osmolality Calculated 294 mOsm/kg (285-295); Sodium 140 mmol/L (136-145)
[2024-12-17 18:22] LABS: Anion Gap 15.4 (5-19); Potassium 4.4 mmol/L (3.5-5.1)
[2024-12-17] MEDS: metOLazone 5 MG Tablet 2.5 MG PO (18:51)
[2024-12-18] VITALS (7 sets, daily range): BP systolic 110–144; BP diastolic 59–94; PULSE 66–75; RESP 15–24; TEMP 36.6–37.6; O2SAT 90–95
[2024-12-18 00:10] LABS: Partial Thromboplastin Time 224.5 SECONDS (23.9-36.7)
--- NOTE | 2024-12-18 04:10 | PC.NURSE ---
0027- Notified MD that PTT came back at a critical 224.5. Heparin gtt stopped. Per MD after 4 hours restart the drip and decrease by 2. 1951- Notified MD that patient has no morning labs and that creatine was being monitored for Cath procedure. Awaiting reply. 1868- Called MD regarding above labs. Recieved orders for CBC and BMP.
[2024-12-18 04:38] LABS: Basophils % 0.6 %; Eosinophils # 0.3 10^3/uL (0.0-0.8); Eosinophils % 4.7 %; Hematocrit 48.3 % (37-53); Lymphocytes # 1.6 10^3/uL (0.8-4.8); Lymphocytes % 23.1 %; Mean Corpuscular HGB Conc 32.7 g/dL (30-55); Mean Corpuscular Hemoglobin 30.9 pg (27-33); Mean Corpuscular Volume 94.5 fl (82-101); Mean Platelet Volume 10.9 fL (7.4-10.4); Monocytes # 0.9 10^3/uL (0.2-0.9); Monocytes % 13.4 %; Neutrophils # 3.94 10^3/uL (1.8-7.7); Neutrophils % 57.9 %; Nucleated Red Blood Cells % 0 %; Platelet Count 153 10^3/cmm (157-399); Red Blood Count 5.11 10^6/uL (3.85-5.65); Red Cell Distribution Width 15.7 % (12.1-15.1)
[2024-12-18 04:45] LABS: Partial Thromboplastin Time 47.2 SECONDS (23.9-36.7)
[2024-12-18 04:49] LABS: Anion Gap 13.9 (5-19); Blood Urea Nitrogen 26 mg/dL (8-23); Calcium 8.8 mg/dL (8.5-10.5); Carbon Dioxide 33 mmol/L (22-29); Chloride 97 mmol/L (98-107); Creatinine Clr Calc Pharmacy 76.1863; Glucose 85 mg/dL (65-115); Osmolality Calculated 294 mOsm/kg (285-295); Potassium 3.9 mmol/L (3.5-5.1); Sodium 140 mmol/L (136-145)
--- NOTE | 2024-12-18 05:02 | XACV_ITS ---
Exam Room: 2 Ht: 173 cm Wt: 112 kg BSA: 2.36 m2 Gender: Male : 1950 Any Known Allergies: No known allergies Exam Priority: Routine Procedure(s): Procedure Description: Diagnostic procedure Procedure Description: Coronary Angiography Diagnostic Cath Status: Elective Diagnostic Findings * Left Main has no significant disease. * Mid Left Anterior Descending: Chronic total occlusion, NARINDER: 0 flow.Collateral vessels reconstitute mid to distal LAD. LAD gives rise to a large sized diagonal artery. * Proximal Right Coronary Artery to Mid Right Coronary Artery: Chronic total occlusion, NARINDER: 0 flow.Distal vessel has left to right collaterals. * Proximal to mid left Circumflex: severe, serial 80-90% stenoses. * Proximal Left Anterior Descending: significant 80% stenosis, NARINDER: 3 flow. * Coronary angiography shows right dominance. Conclusions 1. Severe multivessel coronary artery disease. Recommendations * We will transfer patient to tertiary care facility for CABG. * Continue diuresis. Interventional RX Recommendation: CABG Diagnostic RX Recommendation: CABG Anticoagulation: Heparin Pressures Phase:Rest AO : 127 / 75 ( 97 ) @ 6:44:00 AM 123 / 75 ( 94 ) @ 6:47:00 AM 139 / 69 ( 95 ) @ 6:50:00 AM 139 / 69 ( 95 ) @ 6:50:00 AM LV : 151 / 7 / 26 @ 6:50:00 AM 149 / 7 / 25 @ 6:50:00 AM Valves Phase:DefaultPhase AV : 10.0 @ 6:56:34 AM AV Mean Gradient: 14.0 @ 6:56:34 AM Clinical Evaluation EBL: 5mL-10mL Procedural Details Procedure Consent Obtained. Pre-Procedure Time Out. Identified patient by full name and date of as verbalized by the patient/guarantor. Does the consent match the physician's order: Yes. Accurate & Complete Informed Consent: Yes. Inpatient/Outpatient History & Physical on Chart: Yes. If H&P is completed, is and addenduem needed: No; If yes, is the addendum complete: N/A. Visualize and Verify Site with Patient/Guarantor: N/A. Relevant Radiology Images available: Yes. The risks, benefits, and alternatives of sedation and/or procedure were discussed by physician. The patient agrees to continue. Procedure started. [facility] Clinical Fraility Score: 4: Vulnerable. Public Affairs Specialist Indications: Other. Chest Pain Symptom Assessment: Typical Angina Symptoms. Correct patient, site and procedure confirmed by cath team. Current diagnosis: Chest Pain. A 20 gauge IV was started in the right anticubital using aseptic technique. A 16Fr rodarte catheter was inserted without resistance maintaining sterile technique. Bag to gravity with clear urine returning. Baseline sample Acquired. HR: 76 BPM. Physician arrived. PERRLA. Strong, equal hand feeder tender bilaterally. Lungs clear x 5 lobes. Oxygen started at 5liters/min via nasal canula. right groin was prepped with chloroprep then draped in the usual sterile fashion. right radial was prepped with chloroprep then draped in the usual sterile fashion. Physician scrubbed in. Immediate Pre-Procedure Time Out. Correct Patient: Yes; Correct Procedure: Yes; Correct Site: Yes; Correct Patient Position: Yes; Correct Supplies: Yes; Dried Flammable Prep: Yes; Blood Products Available: N/A;. Lidocaine 1% infiltrated to the right radial. Ultrasound being used to obtain arterial access. Arterial access obtained. A 5 hebrew TIG catheter in over wire. Multiple views taken of left coronary artery. Catheter redirected to the RCA. Multiple views taken of right coronary artery. EDP Sample taken: LV 151/7,26; HR: 73 BPM; SpO2: 91%. Pullback taken: LV 149/7,25; AO 139/69(95); Mean: 14mmHg, Peak to Peak: 10mmHg, SEP: 16sec/min; HR: 69 BPM; SpO2: 92%. Catheter removed over the exchange wire. A TR Band was successful obtaining hemostatsis at the Right Radial artery insertion site. TR band placed. Hemostasis obtained. Post Procedure: Pulses reassessed and unchanged. PERRLA. Strong, equal hand feeder tender bilaterally. No VTE prophylaxis required. Medication's Wasted: Lidocaine 1% = 18 mL. Medication's Wasted: Other = Fentanyl 75 mcg. Medication's Wasted: Nitro = 49.8 mcg. Medication's Wasted: Heparin = 3500 units. Medication's Wasted: Other = Lasix 50 mg. Total IV fluids: 20 mL. Vital chart was stopped. Post-op diagnosis: CAD. Complications: None. Estimated blood loss: 5mL-10mL. Responsiveness - Normal response to verbal stimuli; alert and oriented, PERRLA. Airway - Unaffected, no intervention required; spontaneous ventilation. Circulation: W/N/L, pulses unchanged. Nausea/Vomiting: No. Procedure completed. Patient transferred by bed to 1st floor. Access Site Site: Right Radial artery Sheath Size: 6 Fr Hemostasis Method: TR Band Hemostasis Success: Successful Procedure Medications Start: 6:25 AM Stop: 6:25 AM Medication: Versed 1 mg and Fentanyl 25 mcg Amount: 1 Route: I.V. Start: 6:25 AM Stop: 6:25 AM Medication: Lasix (furosemide) Amount: 40 mg Route: I.V. Start: 6:38 AM Stop: 6:38 AM Medication: Versed Amount: 1 mg Route: I.V. Start: 6:41 AM Stop: 6:41 AM Medication: Nitrogylcerin Amount: 200 mcg Route: I.A. Start: 6:43 AM Stop: 6:43 AM Medication: Heparin Amount: 2500 units Route: I.V. I, the attending physician, have reviewed and verified all procedure medications. Yes, all medications given per verbal order History/Risk Factors Hypertension: Yes Dyslipidemia: No Peripheral Arterial Disease (PAD): No Myocardial Infarction (PR): No Obesity: Yes Renal Disease: No Tobacco Use: Never Prior Interventions PCI: No CABG: No Valve Surgery: No Report Signatures Finalized by Quang Montgomery MD on 12/19/2024 07:16 PM
--- NOTE | 2024-12-18 06:34 | W.PM.OPSUD ---
Surgery/Procedure H&P Update DATE OF PROCEDURE: December 18, 2024 DATE H&P PERFORMED: 12/16/24 H&P UPDATE INFORMATION: I have reviewed H&P completed within last 30 days, I have examined patient prior to procedure and No changes to prior documentation PREOP DIAGNOSIS: LV dysfunction/ troponin elevation PRIMARY INDICATION FOR PROCEDURE: LV dysfunction/ troponin elevation PLANNED PROCEDURE: Operation Date: 12/17/24 07:00 Proposed Procedures p Cardiac Catheterization(Left) - Quang Montgomery M.D Possible percutaneous coronary intervention PATIENT REASSESSED PRIOR TO SEDATION, WITH NO CHANGE NOTED: Yes PHYSICAL EXAM: alert, oriented x 3 and regular rate & rhythm OTHER PERTINENT EXAM FINDINGS: Diminished air entry bilaterally AIRWAY EVAL/ANESTHESIA PLAN: normal airway, ASA III, Local Anesthesia, Risks, benefits & alternatives of sedation and/or procedure discussed and Patient agrees to continue as planned ADDITIONAL INFORMATION: Moderate sedation
--- NOTE | 2024-12-18 06:59 | P.PCN_ITS ---
Procedure Note: Date of procedure: 12/18/24 Pre-procedure diagnosis: LV dysfunction/ troponin elevation Post-procedure diagnosis: other (Severe multivessel coronary artery disease) Procedure: Left heart cath: Left main artery is patent. LAD has severe stenosis in proximal segment. ASPHALT ROLLER OPERATOR in mid segment. Has collaterals. RCA has ASPHALT ROLLER OPERATOR in mid segment. Left circumflex artery has multiple severe lesions in proximal to mid segment. Recommend CABG as has severe multivessel coronary artery disease with CTOs of LAD and RCA Continue diuresis. Performing Provider: Quang Montgomery Estimated blood loss (mL): 10 Complications: None Condition: stable Disposition: floor Coding Level of Care Code Acute Code for Chg Fwd
--- NOTE | 2024-12-18 07:24 | PC.NURSE ---
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 Day shift and Noc shift RN at bedside for report. TR band in place with 14 ml of air no signs of bleeding/hematoma. Patient settled in bed and questions answered.
--- NOTE | 2024-12-18 07:58 | PC.NURSE ---
patient arrived back on the floor from catheter builder at 0708. Bedside report taken from Delmi BEYER. TR band on with 14ml in place. No hematoma noted
[2024-12-18] MEDS: lisinopril 10 mg Tablet PO ×2 (08:38→17:27)
[2024-12-18] MEDS: bacitracin ointment 28 gm 1 APPLIC TOPICAL ×2 (08:38→17:27)
[2024-12-18] MEDS: aspirin 81 mg EC Tablet PO (08:38)
--- NOTE | 2024-12-18 09:25 | PC.CHAP ---
Pastoral Care Encounter/Spiritual Assessment Type of Contact [] Declined phy therapist visit [] Patient/Family/Request visit [] Outpatient visit [] Follow-up visit [] Physician referral [] Code/Alert [x] Routine visit [] Staff referral [] Actively dying [] Patient sleeping [] Family support [] [] Out of room [] Palliative care [] [] Receiving care in room [] Pre-surgical visit [] Trauma [] Long length of stay [] ICU visit [] Other: Relational/Emotional Strength [x] Patient feels connected with others/family/visitors/staff [] Distress [] Loneliness/isolation [] Abandonment Spirituality of Patient [x] Person of Linda [] Attends Baptism of their Linda [x] Believes in Prayer [] Reads Bible or Restoration materials [] There are Spiritual issues to be addressed Data Management Engineer Interventions [x] Prayer [x] Active listening [x] Non-anxious presence [x] Spiritual/emotional support [] Crisis/trauma care [] Spiritual counseling [] Bereavement support [] Provided bereavement packet [] Provided Bible/devotional materials [] Provided toy/stuffed animal, coloring book to patient or family member [] Provided Communion [] Anointing/Grawn [] Salvation [x] Completed spiritual assessment [] Other: Impact on Illness or Injury [] Angry [] Fearful [] Anxious [] Often cries [] Exhaustion [] Unable to work [] Unable to attend adventist [] Unable to walk/stand [] Unable to read [] Unable to drive [] Unable to eat/drink [] Unable to sleep [] Unable to be with family [] Patient intubated [] Other: Summary Time spent with patient 5 min
[2024-12-18] MEDS: metoprolol tartrate 25 mg Tablet PO ×2 (10:21→21:07)
--- NOTE | 2024-12-18 11:51 | P.PN_ITS ---
Subjective 2 Subjective: Underwent coronary angiogram this morning and has been recommended CABG. Patient on 2 L nasal cannula. States he feels well and denies any chest pain or shortness of breath. Vitals/I&O/Wt Last Vital Signs Temp 97.9 F 12/18/24 08:00 Pulse 75 12/18/24 10:58 Resp 20 H 12/18/24 10:58 BP 134/94 12/18/24 08:00 Pulse Ox 92 12/18/24 10:58 O2 Del Method Nasal Cannula 12/18/24 10:58 O2 Flow Rate 2.5 12/18/24 10:58 12/17/24 12/18/24 12/18/24 22:59 06:59 14:59 Intake Total 480 / 960 228.267 / 1188.267 542.5 / 542.5 Output Total 300 / 300 875 / 1175 Balance 180 / 660 -646.733 / 13.267 542.5 / 542.5 Weight last 48 hrs Weight 110.178 kg Weight 111.674 kg Physical Exam 2 Narrative: General: Alert oriented x3, patient seen sitting up in bed on 2-3 L nasal cannula. HEENT: Normocephalic, atraumatic, EOMI, breathing 2 L NC. Cardio: Regular rate rhythm, normal S1-S2, no gross murmurs. Respiratory: Mild crackles bilaterally at base of lungs. GI: Abdomen soft, nontender, nondistended, bowel sounds + Behavior: Appropriate and cooperative Extremities: 2+ edema bilaterally up to thighs. Generalized anasarca. Right wrist covered with Band-Aid. Data 12/18/24 04:20 12/18/24 04:20 A&P Assessment and plan (1) Severe hypertension: (2) Congestive heart failure: Qualifiers: Heart failure chronicity: acute Heart failure type: unspecified Q ualified Code(s): I50.9 - Heart failure, unspecified (3) New onset of congestive heart failure: Plan New onset CHF EF is unknown Requested echo I do believe this is related to uncontrolled hypertension and untreated sleep apnea Check hemoglobin A1c, TSH Start diuretics Requested echo Serial troponin and EKG Depending on echo report patient will probably need cardiology consultation if he is reduced for evaluation of new onset CHF Hypertensive urgency Patient is hypertensive has not received any IV pushes in the ER, I will like to try IV pushes before labetalol drip to see the response I will start patient on lisinopril 10 mg twice daily regimen along Lasix, amlodipine and metoprolol Untreated sleep apnea? Overnight pulse ox study Acute hypoxia: Related to CHF Currently on 2 L wean off oxygen to room air Purulent cellulitis left leg Will use topical bacitracin No systemic signs Venous stasis dermatitis as well: Requested D-dimer which came back at 1.[address] chest and venous Doppler Full code Cardiac diet DVT prophylaxis: Heparin 12/16/2024 #New onset congestive heart failure #Hypertensive urgency requiring labetalol drip on admission #Possible undiagnosed obstructive sleep apnea #Purulent cellulitis left leg #Elevated troponin #Elevated D-dimer -Continue IV diuresis with Lasix 40 IV twice daily. Continue to monitor urine output. Patient still has significant crackles bilaterally at one third of his lungs. Secondary to IV Lasix patient is at risk for electrolyte imbalance. Check BMP daily and replete potassium and magnesium as needed. ? Venous Dopplers are ruled out DVT. I will go ahead and order CTA chest to rule out PE. Patient does have hypoxia requiring 2 L nasal cannula [id number] at this time. Not on any oxygen at home. Hypoxia most likely secondary to fluid overload however PE cannot be ruled out at this time. ? Patient will need sleep study as an outpatient after discharge. ? Labetalol drip was stopped overnight. Placed on lisinopril 10 mg twice daily, amlodipine, metoprolol. We will continue at this time. ? Continue Lovenox 40 daily for DVT prophylaxis. ? Does have cellulitis on left leg. Bacitracin topical twice daily ordered. Order IV ceftriaxone 1 g daily and switch to oral Augmentin at discharge to treat for total 10 days. ? Cardiology consulted. Appreciate recommendations. ? Echo pending at this time. Full code 12/17/2024 Hold Lasix 40 IV twice daily at this time. Hold IV fluids. Continue metoprolol to tartrate I will stop therapeutic Lovenox at this time for coverage for PE and switch to heparin drip secondary to KELLY. Recheck BMP in the afternoon around 4 PM. Continue patient's diet today. Will plan for coronary angiogram once creatinine is better. Discussed with cardiology. 12/18/2024 Continue Lasix 40 IV twice daily Continue to hold IV fluids. Continue on heparin drip. Patient had large contrast load this morning with angiogram. Will hold off on doing CTA chest rule out PE today. We will do that study tomorrow and if PE is negative we will stop heparin drip at that point. ? Patient requires continued hospitalization for continued IV diuresis. Once volume status is optimized she will be discharged home and follow-up with [facility] as an outpatient this be scheduled for CABG. Discussed plan with cardiology. Discussed plan with patient was agreeable to the above. Continue to monitor renal function. Check BMP daily. PDMP PDMP Reviewed: Not Reviewed Attestations 2 Medical Necessity Statement*: Requires continued hospitalization for IV diuresis. Diagnoses Severe hypertension I10 Congestive heart failure I50.9 Heart failure chronicity: acute Heart failure type: unspecified New onset of congestive heart failure I50.9
[2024-12-18 11:59] LABS: Partial Thromboplastin Time 34.9 SECONDS (23.9-36.7)
--- NOTE | 2024-12-18 12:30 | PC.SOCIAL ---
IMM Updated Updated pt on IMM. No questions voiced. Provided pt a copy. Initialed, dated, & timed a copy & placed in chart.
[2024-12-18] MEDS: FUROsemide 10 mg/mL SDV 4mL 40 MG IVP (15:04)
--- NOTE | 2024-12-18 16:05 | P.PN_ITS ---
<Statement entered by Quang Montgomery M.D - 12/19/24 21:57> Patient was evaluated and cared for in conjunction with an advanced practice practitioner. I personally examined the patient and reviewed the chart and all pertinent data including imaging, telemetry, and laboratory results. I discussed the patient in detail with the advanced practice practitioner. Please see their note for complete progress note, results and agreed upon plan of care for the patient. GENERAL: Patient is alert and oriented HEART: Regular S1 and S2 LUNGS: Has bilateral crackles EXTREMITIES: Lower extremities with 1+ edema Patient has multivessel CAD. Will need CABG. Plan for discussion with CT surgery team and then decide on inpatient transfer vs outpatient referral. Continue IV diuresis. Monitor renal function. Close I and Os. Thank you for involving us with care of this patient. Please call with questions Subjective 2 Subjective: Patient doing well overall. Status post left heart cath. Patient has severe multi-vessel disease. He will need CABG. he still has some crackles and edema. We will continue to diurese him with Lasix Vitals/I&O/Wt Last Vital Signs Temp 98.5 F 12/18/24 12:00 Pulse 68 12/18/24 12:00 Resp 18 12/18/24 12:00 BP 123/69 12/18/24 12:00 Pulse Ox 90 12/18/24 12:00 O2 Del Method Nasal Cannula 12/18/24 12:00 O2 Flow Rate 2 12/18/24 12:00 12/18/24 12/18/24 12/18/24 06:59 14:59 22:59 Intake Total 228.267 / 1188.267 929.0 / 929.0 Output Total 875 / 1175 Balance -646.733 / 13.267 929.0 / 929.0 Weight last 48 hrs Weight 242 lb 14.4 oz Weight 246 lb 3.2 oz Physical Exam 2 Narrative: General: No apparent distress, healthy appearing, well nourished HENMT: normoceophalic Muskuloskeletal: Full ROM Respiratory: Normal respiratory effort, fine crackles bilateral lower lobes, no use of accessory muscles Cardio: No JVD, regular rate, regular rhythm, S1 S2 normal, no murmurs, peripheral pulses 2+ radial palpated bilaterally GI: Normal to inspection, nondistended Extremities: Full ROM, normal, normal capillary refill, no cyanosis, trace edema bilateral lower extremities Neuro: Alert and oriented x4, no focal motor deficits Psych: Affect normal, denies suicidal ideation, mental status grossly normal Skin: No rashes or lesions noted, no wounds Data 12/18/24 04:20 12/18/24 04:20 A&P Assessment and plan (1) Severe hypertension: (2) New onset of congestive heart failure: (3) Shortness of breath: (4) Elevated troponin: Plan Patient will need CABG in the future. At this time he is still fluid overloaded. Plans are to continue to diurese. We will continue Lasix 40 twice daily and add metolazone 2.5 mg daily. We will titrate to patient's response. Once he is euvolemic the plan is to discharge him for an outpatient referral for CABG. PDMP PDMP Reviewed: Not Reviewed Attestations 2 Medical Necessity Statement*: Deferred to primary Coding Level of Care Code Acute Code for [facility] Fwd Diagnoses Severe hypertension I10 New onset of congestive heart failure I50.9 Shortness of breath R06.02 Elevated troponin R79.89
[2024-12-18] MEDS: potassium chloride ER 20 mEq Tablet PO (17:27)
[2024-12-18 17:46] LABS: Partial Thromboplastin Time 40.4 SECONDS (23.9-36.7)
[2024-12-18] MEDS: heparin drip 25,000 UNIT/500 ML PREMIX 35 UNIT IV (18:32)
--- NOTE | 2024-12-18 19:29 | PC.NURSE ---
rodarte catheter removed at 1914. Patient reporting pain.
[2024-12-18 22:32] LABS: Partial Thromboplastin Time 39.3 SECONDS (23.9-36.7)
[2024-12-19] VITALS (8 sets, daily range): BP systolic 109–158; BP diastolic 61–86; PULSE 60–70; RESP 12–25; TEMP 36.1–36.9; O2SAT 91–95
[2024-12-19] MEDS: FUROsemide 10 mg/mL SDV 4mL 40 MG IVP ×2 (02:18→15:18)
[2024-12-19 05:15] LABS: Basophils % 0.5 %; Eosinophils # 0.3 10^3/uL (0.0-0.8); Eosinophils % 3.2 %; Hematocrit 48.9 % (37-53); Lymphocytes # 1.8 10^3/uL (0.8-4.8); Lymphocytes % 23.1 %; Mean Corpuscular HGB Conc 32.5 g/dL (30-55); Mean Corpuscular Hemoglobin 30.3 pg (27-33); Mean Corpuscular Volume 93.1 fl (82-101); Mean Platelet Volume 11.3 fL (7.4-10.4); Monocytes % 12.6 %; Neutrophils # 4.76 10^3/uL (1.8-7.7); Neutrophils % 60.3 %; Nucleated Red Blood Cells % 0 %; Platelet Count 151 10^3/cmm (157-399); Red Blood Count 5.25 10^6/uL (3.85-5.65); Red Cell Distribution Width 15.4 % (12.1-15.1); White Blood Count 7.88 10^3/uL (3.29-11.43)
[2024-12-19 05:30] LABS: Anion Gap 13.9 (5-19); Blood Urea Nitrogen 34 mg/dL (8-23); Carbon Dioxide 36 mmol/L (22-29); Chloride 91 mmol/L (98-107); Glucose 100 mg/dL (65-115); Magnesium 1.9 mg/dL (1.7-2.3); Osmolality Calculated 292 mOsm/kg (285-295); Potassium 3.9 mmol/L (3.5-5.1); Sodium 137 mmol/L (136-145)
[2024-12-19 05:49] LABS: Partial Thromboplastin Time > 250.0 SECONDS (23.9-36.7)
--- NOTE | 2024-12-19 07:00 | CT_ITS ---
WS: [id number] CTA OF THE CHEST WITH PULMONARY EMBOLISM PROTOCOL TECHNIQUE: High-resolution contrast enhanced CTA of the chest with coronal and sagittal reformatted images with pulmonary embolism protocol. MIP images are also reviewed. CLINICAL INFORMATION: hypoxia COMPARISON: None. DLP: 449.[address] scans at [facility] use at least one of these dose optimization techniques: automated exposure control; mA and/or kV adjustment per patient size (includes targeted exams where dose is matched to clinical indication); or iterative reconstruction. FINDINGS: Proximal main pulmonary arteries are normal. No evidence of pulmonary embolus. Aortic calcification. Moderate pericardial effusion. Tiny pleural effusions with compressive atelectasis in the lung bases LEFT greater than RIGHT. No mediastinal or hilar lymphadenopathy. No axillary lymphadenopathy. Mild thoracic kyphosis. Small esophageal hiatal hernia. Dense coronary calcification. 5 mm noncalcified nodule LEFT upper lobe along the fissure. CT/CT angio chest PE protcl [id number] IMPRESSION: 1. No evidence of pulmonary embolus 2. Tiny bilateral pleural effusions with compressive atelectasis in the lung b ases. 3. Moderate pericardial effusion.
[2024-12-19] MEDS: lisinopril 10 mg Tablet PO ×2 (08:00→17:36)
[2024-12-19] MEDS: metOLazone 5 MG Tablet 2.5 MG PO (08:00)
[2024-12-19] MEDS: potassium chloride ER 20 mEq Tablet PO ×2 (08:00→17:36)
[2024-12-19] MEDS: metoprolol tartrate 25 mg Tablet PO ×2 (08:00→20:47)
[2024-12-19] MEDS: aspirin 81 mg EC Tablet PO (08:00)
[2024-12-19] MEDS: iohexol 350 mg/mL 500 mL Btl (per mL) IV (10:13)
[2024-12-19 10:16] LABS: Partial Thromboplastin Time 67.6 SECONDS (23.9-36.7)
--- NOTE | 2024-12-19 13:11 | PM.TDS ---
Transfer Summary Providers Date of Admission: 12/15/24 19:49 Date of Discharge/Transfer: 12/19/24 Attending Provider at Admission: Sami Garcia MD Attending Provider at Transfer: Ankita Harrell MD Transfer Plans: Anticipated date of transfer: 12/19/24. Receiving Facility: [facility]. Receiving Provider: Dr. Pino (CT Surgery). Diagnoses at Discharge Discharge Diagnosis (1) Severe hypertension: Status: Acute (2) New onset of congestive heart failure: Status: Acute (3) Shortness of breath: Status: Acute (4) Elevated troponin: Status: Acute Reason for Visit Reason for Visit sob Brief History: Rupert Poe is a 74 year old male who has not seen a doctor in a long time presented to the hospital with worsening shortness of orthopnea and PND. Patient is stating that he has been experiencing orthopnea and PND for last few months and it has gotten worse the last few days, he has been noticing significant swelling of his lower extremities, he has not noticed any chest pain fever nausea vomiting diarrhea. He is sleeping upright these days. Patient is endorsing significant shortness of breath on minimal activity such as taking 2-3 steps, going from 1 room to another. He is denying previous history of hypertension or diabetes stroke DC CHF or family history of coronary disease. Patient has not seen a doctor for a long time. In the ER he was diagnosed with new onset CHF, he is hypertensive, he has not received any antihypertensive regimen yet, he has been given Lasix 80 mg, I would hold off on labetalol drip, would like to try hydralazine 10 mg IV push to see the response and then decide if we need the drip Patient is chest pain-free, blood pressure 197/119mmhg Patient is stating that he does snore a lot, stating if he has sleep apnea he is not willing to try CPAP Hospital Course Hospital Course Patient presented with new onset heart failure, hypertensive urgency. Echo revealed a new low EF of 40 to 45%. Initially was diuresed and once able to lay flat was taken to coronary angiogram. Cath report as follows: Date of procedure: 12/18/24 Pre-procedure diagnosis: LV dysfunction/ troponin elevation Post-procedure diagnosis: other (Severe multivessel coronary artery disease) Procedure: Left heart cath: Left main artery is patent. LAD has severe stenosis in proximal segment. SEWER SEPARATION DESIGNER in mid segment. Has collaterals. RCA has SEWER SEPARATION DESIGNER in mid segment. Left circumflex artery has multiple severe lesions in proximal to mid segment. Recommend CABG as has severe multivessel coronary artery disease with CTOs of LAD and RCA Continue diuresis. Performing Provider: Quang Montgomery Estimated blood loss (mL): 10 Complications: D-dimer was elevated and greater than age-adjusted D-dimer. Patient requiring supplemental oxygen. CTA chest was pursued which ruled out PE. Initially however empiric coverage patient was on a heparin drip. Once CT resulted heparin drip was discontinued. Patient case was discussed with cardiothoracic surgery at [facility] by the cardiology team. Dr. Pino accepted the patient for transfer for CABG. cardiology team coordinated the transfer. We will be transferring patient in stable condition to [facility] once a bed becomes available. Physical Exam Narrative: General: Alert oriented x3, patient seen sitting up in bed on 2-3 L nasal cannula. HEENT: Normocephalic, atraumatic, EOMI, breathing 2 L NC. Cardio: Regular rate rhythm, normal S1-S2, no gross murmurs. 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 echo complete* [id number] Routine Ultrasound 12/16/24 20:45 Completed Laboratory Last Values WBC 7.88 10^3/uL (3.29-11.43) 12/19/24 05:05 RBC 5.25 10^6/uL (3.85-5.65) 12/19/24 05:05 Hgb 15.90 g/dL (11.27-16.99) 12/19/24 05:05 Hct 48.9 % (37-53) 12/19/24 05:05 MCV 93.1 fl (82-101) 12/19/24 05:05 MCH 30.3 pg (27-33) 12/19/24 05:05 MCHC 32.5 g/dL (30-55) 12/19/24 05:05 RDW 15.4 % (12.1-15.1) H 12/19/24 05:05 Plt Count 151 10^3/cmm (157-399) L 12/19/24 05:05 MPV 11.3 fL (7.4-10.4) H 12/19/24 05:05 Neut % (Auto) 60.3 % 12/19/24 05:05 Lymph % (Auto) 23.1 % 12/19/24 05:05 [place] % (Auto) 12.6 % 12/19/24 05:05 Eos % (Auto) 3.2 % 12/19/24 05:05 Baso % (Auto) 0.5 % 12/19/24 05:05 Neut # (Auto) 4.76 10^3/uL (1.8-7.7) 12/19/24 05:05 Lymph # (Auto) 1.8 10^3/uL (0.8-4.8) 12/19/24 05:05 [place] # (Auto) 1.0 10^3/uL (0.2-0.9) H 12/19/24 05:05 Eos # (Auto) 0.3 10^3/uL (0.0-0.8) 12/19/24 05:05 Baso # (Auto) 0.0 10^3/uL (0.0-0.1) 12/19/24 05:05 Nucleated RBC % (auto) 0 % 12/19/24 05:05 Nucleated RBCs # 0.0 /100WBC 12/19/24 05:05 APTT 67.6 SECONDS (23.9-36.7) H D 12/19/24 09:46 D-Dimer 1.51 ug/mLFEU (0-0.59) H 12/15/24 17:48 Specimen Type Arterial 12/15/24 17:52 Sample Site Radial, left 12/15/24 17:52 ABG pH 7.35 (7.35-7.45) 12/15/24 17:52 ABG pCO2 43.1 mmHg (35-45) 12/15/24 17:52 ABG pO2 91.0 mmHg (80.0-100.0) 12/15/24 17:52 ABG PO2/FiO2 Ratio 284 12/15/24 17:52 ABG HCO3 23.9 mmol/L (22-26) 12/15/24 17:52 ABG Base Excess -1.8 mmol/L (-2.0-2.0) 12/15/24 17:52 Paresh Test Pos 12/15/24 17:52 Hematocrit 51.2 % (42-52) 12/15/24 17:52 Hgb O2 Saturation 94.9 % (95-100) L 12/15/24 17:52 Carboxyhemoglobin 0.8 %THgb (0.4-20.1) 12/15/24 17:52 Methemoglobin 0.0 % (0.4-1.5) L 12/15/24 17:52 Total Hemoglobin 16.7 g/dL (14-18) 12/15/24 17:52 O2 Delivery Device Nc 12/15/24 17:52 O2 Liters/Min 3.0 % 12/15/24 17:52 FiO2 32.0 % 12/15/24 17:52 [employer]ent [employer] Manager ID Monro 12/15/24 17:52 Sodium 137 mmol/L (136-145) 12/19/24 05:05 Potassium 3.9 mmol/L (3.5-5.1) 12/19/24 05:05 Chloride 91 mmol/L (98-107) L 12/19/24 05:05 Carbon Dioxide 36 mmol/L (22-29) H 12/19/24 05:05 Anion Gap 13.9 (5-19) 12/19/24 05:05 BUN 34 mg/dL (8-23) H 12/19/24 05:05 Creatinine 1.2 mg/dL (0.7-1.2) 12/19/24 05:05 GFR Calculation Not Reportable 12/19/24 05:05 Glucose 100 mg/dL (65-115) 12/19/24 05:05 Estimat Average Glucose 120 12/15/24 17:48 Hemoglobin A1c 5.8 % (4.0-6.0) 12/15/24 17:48 Calculated Osmolality 292 mOsm/kg (285-295) 12/19/24 05:05 Calcium 9.0 mg/dL (8.5-10.5) 12/19/24 05:05 Phosphorus 4.2 mg/dL (2.5-4.5) 12/16/24 05:08 Magnesium 1.9 mg/dL (1.7-2.3) 12/19/24 05:05 Total Bilirubin 0.9 mg/dL (0.15-1.2) 12/15/24 17:48 AST 27 U/L (0-40) 12/15/24 17:48 ALT 19 U/L (0-41) 12/15/24 17:48 Alkaline Phosphatase 58 U/L (40-130) 12/15/24 17:48 Troponin T Baseline 53 ng/L (0-15) H 12/15/24 17:48 Troponin T 120 Minute 57.13 ng/L (0-15) H 12/15/24 19:30 Delta Troponin T 4.13 ABS# (0-10) 12/15/24 19:30 Troponin T Hi Sens 6Hr 57.95 ng/L (0-15) H 12/15/24 23:43 Troponin T Hi Sens 6Hr Delta 4.95 ng/L (0-12) 12/15/24 23:43 NT-Pro-B Natriuret Pep 7666 pg/mL (0-450) H 12/15/24 17:48 Total Protein 6.5 g/dL (6.6-8.7) L 12/15/24 17:48 Albumin 4.3 g/dL (3.5-5.2) 12/15/24 17:48 Globulin 2.2 g/dL (1.3-4.6) 12/15/24 17:48 Triglycerides 108 mg/dL (0-150) 12/15/24 17:48 Cholesterol 156 mg/dL (0-200) 12/15/24 17:48 LDL Cholesterol, Calc 90 mg/dL (50-129) 12/15/24 17:48 HDL Cholesterol 44 mg/dL (60-100) L 12/15/24 17:48 LDL/HDL Ratio 2.05 RATIO (0.00-3.22) 12/15/24 17:48 Cholesterol/HDL Ratio 3.55 mg/dL (1.0-5.00) 12/15/24 17:48 TSH 2.25 uIU/mL (0.27-4.20) 12/15/24 17:48 Influenza A (PCR) Negative (Negative) 12/15/24 18:21 Influenza Type B (PCR) Negative (Negative) 12/15/24 18:21 RSV (PCR) Negative (Negative) 12/15/24 18:21 SARS-CoV-2 (PCR) Negative (Negative) 12/15/24 18:21 Radiology Impressions Chest X-Ray 12/15/24 17:42 IMPRESSION: 1. Ieet-[id number] layering bilateral pleural effusions with associated compressive atelectasis. 2. Query pulmonary fibrotic change. Chest CTA 12/19/24 07:00 IMPRESSION: 1. No evidence of pulmonary embolus 2. Tiny bilateral pleural effusions with compressive atelectasis in the lung bases. 3. Moderate pericardial effusion. Recent Clincial Data Last Vital Signs Temp 96.9 F L 12/19/24 11:58 Pulse 64 12/19/24 11:58 Resp 25 H 12/19/24 11:58 BP 129/61 12/19/24 11:58 Pulse Ox 95 12/19/24 11:58 O2 Del Method Nasal Cannula 12/19/24 11:58 O2 Flow Rate 2 12/19/24 10:00 Vital Signs Temp Pulse Resp BP Pulse Ox O2 Del Method O2 Flow Rate 12/19/24 11:58 96.9 F L 64 25 H 129/61 95 Nasal Cannula 12/19/24 10:00 67 18 92 Nasal Cannula 2 12/19/24 07:43 97.9 F 67 22 H 139/67 91 Room Air 12/19/24 04:00 98.4 F 67 17 158/69 93 Nasal Cannula Intake & Output/Weight 12/17/24 12/18/24 12/19/24 12/20/24 06:59 06:59 06:59 06:59 Intake Total 960 / 960 1188.267 / 7583.234 7905.400 / 2132.400 Output Total 1600 / 1600 1175 / 1175 4450 / 4450 500 / 500 Balance -640 / -640 13.267 / 13.267 -2317.600 / -2317.600 -500 / -500 Weight 111.674 kg 110.178 kg 108.091 kg Vitals Last Vital Signs Temp 96.9 F L 12/19/24 11:58 Pulse 64 12/19/24 11:58 Resp 25 H 12/19/24 11:58 BP 129/61 12/19/24 11:58 Pulse Ox 95 12/19/24 11:58 O2 Del Method Nasal Cannula 12/19/24 11:58 O2 Flow Rate 2 12/19/24 10:00 TS Medications Medications Acetaminophen (Acetaminophen 500 Mg Tablet) 500 mg PO Q4H PRN PRN Reason: fever Albuterol/Ipratropium (Ipratropium-Albuterol 3 Ml Neb) 3 ml INHALATION Q6H PRN PRN Reason: SHORTNESS OF BREATH Aspirin (Aspirin 81 Mg Ec Tablet) 81 mg PO DAILY [facility] Last Admin: 12/19/24 08:00 Dose: 81 mg Bacitracin (Bacitracin Ointment 28 Gm) 1 applic TOPICAL BID [facility]; Protocol Last Admin: 12/19/24 08:33 Dose: Not Given Furosemide (Furosemide 10 Mg/Ml Sdv 4ml) 40 mg IVP Q12H [facility] Last Admin: 12/19/24 02:18 Dose: 40 mg Hydralazine HCl (Hydralazine 20 Mg/Ml Inj 1 Ml) 10 mg IVP Q4H PRN PRN Reason: bp>180/110mmhg Lisinopril (Lisinopril 10 Mg Tablet) 10 mg PO BID [facility] Last Admin: 12/19/24 08:00 Dose: 10 mg Metolazone (Metolazone 5 Mg Tablet) 2.5 mg PO DAILY [facility] Last Admin: 12/19/24 08:00 Dose: 2.5 mg Metoprolol Tartrate (Metoprolol Tartrate 25 Mg Tablet) 25 mg PO BID@0900,2100 [facility] Last Admin: 12/19/24 08:00 Dose: 25 mg Ondansetron HCl (Ondansetron 2 Mg/Ml Sdv 2 Ml) 4 mg IVP Q6H PRN PRN Reason: NAUSEA AND VOMITING Potassium Chloride (Potassium Chloride Er 20 Meq Tablet) 20 meq PO BID [facility] Last Admin: 12/19/24 08:00 Dose: 20 meq Discontinued Medications Amlodipine Besylate (Amlodipine 10 Mg Tablet) 10 mg PO ONCE [facility] Last Admin: 12/15/24 22:31 Dose: 10 mg Bacitracin (Bacitracin Ointment Pkt) 1 each TOPICAL BID [facility]; Protocol Diphenhydramine HCl (Diphenhydramine 50 Mg Capsule) 50 mg PO ONCE ONE Stop: 12/17/24 06:01 Last Admin: 12/17/24 05:48 Dose: 50 mg Enoxaparin Sodium (Enoxaparin 40 Mg/0.4 Ml Syringe) 40 mg SUBCUT Q24H [facility] Last Admin: 12/15/24 22:31 Dose: 40 mg Enoxaparin Sodium (Enoxaparin 120 Mg/0.8 Ml Syringe) 110 mg SUBCUT Q12H [facility] Last Admin: 12/17/24 00:15 Dose: 110 mg Fentanyl (Fentanyl 50 Mcg/Ml Inj 2ml) Confirm Administered Dose 100 mcg .ROUTE .STK-MED ONE Stop: 12/18/24 05:06 Furosemide (Furosemide 10 Mg/Ml Sdv 10ml) 80 mg IVP NOW ONE Stop: 12/15/24 17:43 Last Admin: 12/15/24 19:09 Dose: 80 mg Furosemide (Furosemide 10 Mg/Ml Sdv 10ml) 40 mg IVP Q12H [facility] Last Admin: 12/15/24 21:53 Dose: Not Given Furosemide (Furosemide 10 Mg/Ml Sdv 10ml) 40 mg IVP Q12H [facility] Last Admin: 12/17/24 04:20 Dose: Not Given Furosemide (Furosemide 10 Mg/Ml Sdv 4ml) 40 mg IVP ONCE ONE Stop: 12/17/24 11:50 Last Admin: 12/17/24 13:24 Dose: 40 mg Furosemide (Furosemide 10 Mg/Ml Sdv 10ml) Confirm Administered Dose 100 mg .ROUTE .STK-MED ONE Stop: 12/18/24 06:22 Heparin Sodium (Porcine) (Heparin 5,000 Unit/Ml Inj 1 Ml) 0 unit IVP PRN PRN; Protocol PRN Reason: Heparin Weight Based Protocol -Subsequent Bolus Heparin Sodium (Porcine) (Heparin 5,000 Unit/Ml Inj 1 Ml) 0 unit IVP ONCE ONE; Protocol Stop: 12/17/24 16:42 Last Admin: 12/17/24 17:10 Dose: 5,000 unit Heparin Sodium (Porcine) (Heparin 5,000 Unit/Ml Inj 1 Ml) Confirm Administered Dose 10,000 unit .ROUTE .STK-MED ONE Stop: 12/18/24 05:06 Hydralazine HCl (Hydralazine 20 Mg/Ml Inj 1 Ml) 10 mg IVP ONCE ONE Stop: 12/15/24 20:30 Last Admin: 12/15/24 20:37 Dose: 10 mg Labetalol HCl 300 mg/ Sodium (Chloride) 300 mls @ 0 mls/hr IV .Q0M [facility]; Protocol Sodium Chloride (Sodium Chloride 0.9%) 1,000 mls @ 50 mls/hr IV .Q20H ONE Stop: 12/18/24 00:59 Last Admin: 12/17/24 05:49 Dose: 50 mls/hr Heparin Sodium/Sodium Chloride (Heparin Drip) 25,000 unit in 500 mls @ 0 mls/hr IV CONT [facility]; Protocol Last Titration: 12/19/24 05:52 Dose: 0 unit/kg/hr, 0 mls/hr Lidocaine HCl (Xylocaine) Confirm Administered Dose 20 mls @ as directed .ROUTE .STK-MED ONE Stop: 12/18/24 05:06 Sodium Chloride (Sodium Chloride 0.9%) Confirm Administered Dose 250 mls @ as directed .ROUTE .STK-MED ONE Stop: 12/18/24 06:24 Iohexol (Iohexol 350 Mg/Ml 500 Ml Btl (Per Ml)) 0 ml IV ONCE ONE Stop: 12/19/24 10:13 Last Admin: 12/19/24 10:13 Dose: 100 ml Lisinopril (Lisinopril 10 Mg Tablet) 10 mg PO BID [facility] Metolazone (Metolazone 5 Mg Tablet) 2.5 mg PO ONCE ONE Stop: 12/17/24 17:31 Last Admin: 12/17/24 18:51 Dose: 2.5 mg Midazolam HCl (Midazolam 1 Mg/Ml Inj 2 Ml) Confirm Administered Dose 2 mg .ROUTE .STK-MED ONE Stop: 12/17/24 06:15 Midazolam HCl (Midazolam 1 Mg/Ml Inj 2 Ml) Confirm Administered Dose 2 mg .ROUTE .STK-MED ONE Stop: 12/18/24 05:06 Nitroglycerin (Nitroglycerin 5 Mg/Ml Sdv 10 Ml) Confirm Administered Dose 50 mg .ROUTE .STK-MED ONE Stop: 12/17/24 06:15 Nitroglycerin (Nitroglycerin 5 Mg/Ml Sdv 10 Ml) Confirm Administered Dose 50 mg .ROUTE .STK-MED ONE Stop: 12/18/24 05:06 Allergies No Known Allergies Allergy (Verified 12/15/24 17:21) Home Medications aspirin 81 mg tablet,delayed release 81 mg PO DAILY 12/15/24 [History Confirmed 12/15/24] docusate sodium 100 mg capsule (Colace) 100 mg PO DAILY 12/15/24 [History Confirmed 12/15/24] garlic 100 mg tablet 100 mg PO DAILY 12/15/24 [History Confirmed 12/15/24] mecobalamin (vitamin B12) 1,000 mcg chewable tablet (B12 Active) 1,000 mcg PO DAILY 12/15/24 [History Confirmed 12/15/24] multivitamin 1 tab PO DAILY 12/15/24 [History Confirmed 12/15/24] polyethylene glycol 3350 17 gram/dose oral powder (Miralax) 4 g PO DAILY 12/15/24 [History Confirmed 12/15/24] Discharge Plan Discharge Patient Disposition: Xfer Other Condition: Stable Prescriptions: No Action multivitamin Tablet 1 tab PO DAILY garlic 100 mg Tablet 100 mg PO DAILY aspirin 81 mg Tablet,Delayed Release (Dr/Ec) 81 mg PO DAILY docusate sodium [Colace] 100 mg Capsule 100 mg PO DAILY polyethylene glycol 3350 [Miralax] 17 gram/dose Powder 4 g PO DAILY mecobalamin (vitamin B12) [B12 Active] 1,000 mcg Tablet,Chewable 1,000 mcg PO DAILY Other Ambulatory Orders: DME: Oxygen (Order) Location: None Selected Ordered By: Ankita Harrell Referrals: [facility] [Outside] Transfer Attestations Time Spent in Transfer Care: greater than 30 min Quality Metrics Clinical Quality Measures [ No reported AMI, CVA or VTE this stay] Coding Level of Care Code 30516 Total time (in minutes) for Discharge: 45 Diagnoses Severe hypertension I10 New onset of congestive heart failure I50.9 Shortness of breath R06.02 Elevated troponin R79.89
--- NOTE | 2024-12-19 14:20 | PM.MISC ---
Miscellaneous Note Note: response to CDI query acute systolic heart failure
--- NOTE | 2024-12-19 14:27 | P.PN_ITS ---
<Statement entered by Quang Montgomery M.D - 12/19/24 22:09> Patient was evaluated and cared for in conjunction with an advanced practice practitioner. I personally examined the patient and reviewed the chart and all pertinent data including imaging, telemetry, and laboratory results. I discussed the patient in detail with the advanced practice practitioner. Please see their note for complete progress note, results and agreed upon plan of care for the patient. GENERAL: Patient is alert and oriented HEART: Regular S1 and S2 LUNGS: Clear to auscultation bilaterally EXTREMITIES: Lower extremities with no edema After discussion with CT surgery team at [facility], shared decision made to proceed with transfer for inpatient CABG. Continue diuresis. Close I and Os. Monitor renal function Subjective 2 Subjective: Patient doing well without complaints. He is -317 7 over 24 hours. He is responding well to the Lasix. Still has some crackles but overall improved. Vitals/I&O/Wt Last Vital Signs Temp 96.9 F L 12/19/24 11:58 Pulse 64 12/19/24 11:58 Resp 25 H 12/19/24 11:58 BP 129/61 12/19/24 11:58 Pulse Ox 95 12/19/24 11:58 O2 Del Method Nasal Cannula 12/19/24 11:58 O2 Flow Rate 2 12/19/24 10:00 12/18/24 12/19/24 12/19/24 22:59 06:59 14:59 Intake Total 610 / 1601.733 530.667 / 2132.400 240 / 240 Output Total 3900 / 3900 550 / 4450 1000 / 1000 Balance -3290 / -2298.267 -19.333 / -2317.600 -760 / -760 Weight last 48 hrs Weight 238 lb 4.8 oz Weight 242 lb 14.4 oz Physical Exam 2 Narrative: General: No apparent distress, healthy appearing, well nourished HENMT: normoceophalic Muskuloskeletal: Full ROM Respiratory: Normal respiratory effort, fine crackles bilateral lower lobes, no use of accessory muscles Cardio: No JVD, regular rate, regular rhythm, S1 S2 normal, no murmurs, peripheral pulses 2+ radial palpated bilaterally GI: Normal to inspection, nondistended Extremities: Full ROM, normal, normal capillary refill, no cyanosis, trace edema bilateral lower extremities Neuro: Alert and oriented x4, no focal motor deficits Psych: Affect normal, denies suicidal ideation, mental status grossly normal Skin: No rashes or lesions noted, no wounds Data 12/19/24 05:05 12/19/24 05:05 A&P Assessment and plan (1) Severe hypertension: (2) New onset of congestive heart failure: (3) Shortness of breath: (4) Elevated troponin: Plan Patient has been accepted by Dr. Fernandez at [facility] in [place]. We have contacted their transfer center will notify us when a bed is available. [place] [facility] [place] PDMP Reviewed: Not Reviewed Attestations 2 Medical Necessity Statement*: Deferred to primary. Being transferred to [place] for CABG. Coding Level of Care Code Acute Code for Chg Fwd Diagnoses Severe hypertension I10 New onset of congestive heart failure I50.9 Shortness of breath R06.02 Elevated troponin R79.89
[2024-12-20 00:25] VITALS: TEMP 36.8
[2024-12-20] MEDS: FUROsemide 10 mg/mL SDV 4mL 40 MG IVP (02:47)
[2024-12-20 05:31] VITALS: BP 135/67; PULSE 70; RESP 17; TEMP 36.9; O2SAT 95
[2024-12-20 07:55] VITALS: BP 136/66; PULSE 70; RESP 17; TEMP 36.5
[2024-12-20] MEDS: metoprolol tartrate 25 mg Tablet PO (08:26)
[2024-12-20] MEDS: metOLazone 5 MG Tablet 2.5 MG PO (08:26)
[2024-12-20] MEDS: lisinopril 10 mg Tablet PO (08:26)
[2024-12-20] MEDS: potassium chloride ER 20 mEq Tablet PO (08:26)
[2024-12-20] MEDS: aspirin 81 mg EC Tablet PO (08:27)
--- NOTE | 2024-12-20 08:34 | PC.NURSE ---
[facility] ambulance arrived to [facility] patient at 0834am. Report given to ambulance personnel, Xavier.
[2024-12-20 08:47] VITALS: BP 126/66; PULSE 80; RESP 16; TEMP 36.8; O2SAT 94
== END 2024-12-20 08:48 | disposition short-term general hospital (02) | DRG 286 ==
LOC: ER 20:21 → CSU 21:46
PROVIDERS: Internal Medicine; Nurse Practitioner Family; Admitting Provider Internal Medicine; Emergency Provider Emergency Medicine; Visit Provider Internal Medicine
PROC: 4A023N7 Measurement of Cardiac Sampling and Pressure, Left Heart, Percutaneous Approach (ICD-10-PCS; principal; 2024-12-18 06:00)
DX: I11.0 Hypertensive heart disease with heart failure (principal); I50.21 Acute systolic (congestive) heart failure; L03.116 Cellulitis of left lower limb; I16.0 Hypertensive urgency; R79.89 Other specified abnormal findings of blood chemistry; I25.10 Atherosclerotic heart disease of native coronary artery without angina pectoris; E66.01 Morbid (severe) obesity due to excess calories; Z68.36 Body mass index [BMI] 36.0-36.9, adult; G47.33 Obstructive sleep apnea (adult) (pediatric); Z79.82 Long term (current) use of aspirin; I25.82 Chronic total occlusion of coronary artery
CPT/HCPCS: 36415; 36600; 71045; 71275; 80048; 80053; 80061; 82805; 83036; 83735; 83880; 84100; 84443; 84484; 85025; 85378; 85730; 87637; 93005; 93306; 93458; 93970; 94762; 96365; 96366; 96372; 96374; 96375; 96376; 99152; 99153; 99285; C1769; C1887; C1894; J0360; J1644; J1650; J1940; J2250; J3010; J3490; J7030; J7050; Q0163; Q9967